=== PATIENT | female | born 1970 | race Caucasian/White ===

== ENCOUNTER 2019-02-02 17:59 | Inpatient (IN) | payer OTHER, SELFPAY ==
[2019-02-02] VITALS (13 sets, daily range): BP systolic 72–205; BP diastolic 11–105; PULSE 88–133; RESP 17–22; TEMP 36.4–39.4; O2SAT 89–98; BMI 41.8; BMI 41.7
--- NOTE | 2019-02-02 18:11 | ED.DCSUM_ITS ---
- ER Visit Summary Date of Service: 02/02/19 Chief Complaint: [Dysuria and flank pain] History of Present Illness: The patient is a 49 F [presents the emergency department from [facility] where she was fully evaluated by the emergency room physician there. They do not have urology coverage and they discussed case with who is on-call for urology here at [facility] who accepted transfer patient to our facility. Patient was found to have a kidney stone with UTI. Patient tells me she started having what she thought was UTI symptoms 3 days ago. 2 days ago the pain became severe in her low back and suprapubic region. Patient was seen in the ER today and transferred to this facility. In the emergency department patient was found to have signs of a UTI as well as a 6 mm stone with hydronephrosis. 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 Patient received Rocephin at the other facility.] Physical Examination: [HEENT-PERRLA, EOMI. Cranial nerves II through XII grossly intact. TMs clear. Mucous membranes moist. No adenopathy. Cardiovascular-regular rate and rhythm without murmur or ectopy Lungs-clear to auscultation, chest wall stable without crepitus or subcu emphysema Abdomen-normoactive bowel sounds, soft. Patient has diffuse tenderness over the suprapubic region. Patient has some mild CVA tenderness bilaterally. There is no rebound, rigidity, or perineal signs. Extremities-intact ?4, normal range of motion, normal pulses, atraumatic] Test Results: [Lactate was ordered.] Emergency Department Course and Treatment: [Case was discussed with urologist who will admit patient] Treatment Plan: [Admit] Disposition: [Admit] Impression: Obstructing kidney stone with colic UTI Sepsis [] This note was generated with [facility] dictation software. It may contain incorrect words, spelling, and punctuation that were not noted in review of the chart prior to signing ED Disposition - Plan for ED Patient: Referrals: Uvaldo De León DO [Primary Care Provider] -
--- NOTE | 2019-02-02 18:39 | PCM.CONS.U ---
Reason for Consult Date of Consultation: 02/02/19 Reason for Consultation: Right kidney stone History of Present Illness: The patient is a 49 year old female transferred from outside hospital with fevers and chills elevated white blood count, tachycardia she has a 6 mm stone in the mid ureter that is causing obstruction she was admitted for further care Past Medical History Allergies No Known Allergies Allergy (Verified 02/02/19 18:06) Home Medications: Ambulatory Orders Medication Instructions Recorded Fluoxetine [Prozac] 20 mg PO DAILY 02/02/19 Labetalol [Trandate] 200 mg PO DAILY 02/02/19 Pravastatin [Pravachol] 40 mg PO QHS 02/02/19 Surgical History: noncontributory Psychiatric History: No pertinent psych hx 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 Lives: Alone Smoking Status: Never smoker Tobacco Use: Non-smoker Alcohol: None Drugs: None Review of Systems Constitutional: Denies: Chills, Fever, Weight Change HEENT: Denies: Head Aches, Sinus Congestion, Sinus Drainage Cardiovascular: Denies: Chest Pain, Palpitations Respiratory: Denies: Cough, Shortness of breath at rest, Sputum production Gastrointestinal: Denies: Abdominal Pain, Nausea, Vomiting Genitourinary: Denies: Dysuria Musculoskeletal: Denies: Joint Pain, Joint Tenderness Skin: Denies: Rash, Wounds Neurological: Denies: Numbness, Tingling, Focal weakness Psychiatric: Denies: Anxiety, Depression, Homicidal Ideations, Suicidal Ideations Hematologic/ Lymphatic: Denies: Easy Bruising, Easy Bleeding Physical Exam - Physical Exam Vital Signs Temp 98.9 F 02/02/19 18:08 Pulse 104 H 02/02/19 18:01 Resp 17 02/02/19 18:01 BP 143/91 H 02/02/19 18:01 Pulse Ox 93 02/02/19 18:01 Intake & Output 01/31/19 02/01/19 02/02/19 23:59 23:59 23:59 Weight: 100.3 kg General: Alert, Oriented x3 HEENT: Atraumatic Oral: Moist Mucosa Neck: Supple Lungs: Normal air movement Cardiovascular: Regular rate, Tachycardic Abdomen: Soft, Obese Rectal: Anus normal Laboratory Tests Past 24 Hrs 02/02/19 18:20 Lactic Acid Pending Assessment/Plan 49-year-old female with a 6 mm stone in the right ureter causing obstruction she has a urinary tract infections can be admitted by the hospitalist service for early sepsis she is tachycardic with elevated white blood count, lactic acid pending. I called the surgical team and we can place a stent tonight on the right side. She is n.p.o. and should be consented for the procedure all her questions were answered.
--- NOTE | 2019-02-02 18:42 | CON.PCM_ITS ---
Reason for Consult Date of Consultation: 02/02/19 Reason for Consultation: Right kidney stone History of Present Illness: The patient is a 49 year old female transferred from outside hospital with fevers and chills elevated white blood count, tachycardia she has a 6 mm stone in the mid ureter that is causing obstruction she was admitted for further care Past Medical History Allergies No Known Allergies Allergy (Verified 02/02/19 18:06) Home Medications: Ambulatory Orders Medication Instructions Recorded Fluoxetine [Prozac] 20 mg PO DAILY 02/02/19 Labetalol [Trandate] 200 mg PO DAILY 02/02/19 Pravastatin [Pravachol] 40 mg PO QHS 02/02/19 Surgical History: noncontributory Psychiatric History: No pertinent psych hx 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 Lives: Alone Smoking Status: Never smoker Tobacco Use: Non-smoker Alcohol: None Drugs: None Review of Systems Constitutional: Denies: Chills, Fever, Weight Change HEENT: Denies: Head Aches, Sinus Congestion, Sinus Drainage Cardiovascular: Denies: Chest Pain, Palpitations Respiratory: Denies: Cough, Shortness of breath at rest, Sputum production Gastrointestinal: Denies: Abdominal Pain, Nausea, Vomiting Genitourinary: Denies: Dysuria Musculoskeletal: Denies: Joint Pain, Joint Tenderness Skin: Denies: Rash, Wounds Neurological: Denies: Numbness, Tingling, Focal weakness Psychiatric: Denies: Anxiety, Depression, Homicidal Ideations, Suicidal Ideations Hematologic/ Lymphatic: Denies: Easy Bruising, Easy Bleeding Physical Exam - Physical Exam Vital Signs Temp 98.9 F 02/02/19 18:08 Pulse 104 H 02/02/19 18:01 Resp 17 02/02/19 18:01 BP 143/91 H 02/02/19 18:01 Pulse Ox 93 02/02/19 18:01 Intake & Output 01/31/19 02/01/19 02/02/19 23:59 23:59 23:59 Weight: 100.3 kg General: Alert, Oriented x3 HEENT: Atraumatic Oral: Moist Mucosa Neck: Supple Lungs: Normal air movement Cardiovascular: Regular rate, Tachycardic Abdomen: Soft, Obese Rectal: Anus normal Laboratory Tests Past 24 Hrs 02/02/19 18:20 Lactic Acid Pending Assessment/Plan 49-year-old female with a 6 mm stone in the right ureter causing obstruction she has a urinary tract infections can be admitted by the hospitalist service for early sepsis she is tachycardic with elevated white blood count, lactic acid pending. I called the surgical team and we can place a stent tonight on the right side. She is n.p.o. and should be consented for the procedure all her questions were answered.
--- NOTE | 2019-02-02 18:45 | PCM.HP.STD ---
Problem List (1) UTI (urinary tract infection) Status: Acute Qualifiers: Urinary tract infection type: acute cystitis Hematuria presence: without hematuria Qualified Code(s): N30.00 - Acute cystitis without hematuria (2) Sepsis Status: Acute Qualifiers: Sepsis type: sepsis due to unspecified organism Qualified Code(s): A41.9 - Sepsis, unspecified organism (3) Ureteral calculus, right Status: Acute History of Present Illness Date of Admission: 02/02/19 Chief Complaint: flank pain The patient is a 49 year old F presents with acute onset of right flank pain today. But over the weekend, patient was having some urinary tract symptoms which she commonly gets and takes a uziu-opk-myoapxv antibiotic per her description that usually resolves it on her own but presented to outside hospital and was diagnosed with a right ureteral stone as well as urinary tract infection. Patient, at the outside hospital, received IV fluids, Zofran, Toradol, ceftriaxone and K riders for hyperkalemia. Patient denies ever having had a kidney stone before. Urology was contacted from the other hospital and advised transfer via the emergency room at [facility]. Patient was seen by Dr. Fernandes in the emergency room who will be taking the patient for stent placement this evening. 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 Denies: Anorexia Eyes: Denies: Blurred vision, Double vision HEENT: Denies: Head Aches, Sinus Congestion, Sinus Drainage Cardiovascular: Denies: Chest Pain, Palpitations Respiratory: Denies: Cough, Shortness of breath at rest, Sputum production Gastrointestinal: Reports: Abdominal Pain, Nausea, Vomiting Genitourinary: Reports: Hematuria - But none today. Typically when she gets urinary tract infections.. Denies: Dysuria Musculoskeletal: Denies: Joint Pain, Joint Tenderness Skin: Denies: Rash, Wounds Neurological: Denies: Numbness, Tingling, Focal weakness Psychiatric: Reports: - - States she does not take fluoxetine for depression or anxiety.. Denies: Anxiety, Depression Hematologic/ Lymphatic: Denies: Easy Bruising, Easy Bleeding, Hx of blood clot Comment: A 10 point review of systems were negative except as mentioned in the history of present illness and the other review of systems. VTE Information - Inpt Only VTE Present on Admission: No VTE Mechan Device Prophylaxis: None VTE Pharm Prophylaxis ordered?: Yes Patient Problems: Active and Suspected Problems UTI (urinary tract infection) (Acute) Sepsis (Acute) Ureteral calculus, right (Acute) - Physical Exam General: Alert, Cooperative, No apparent distress, - - Hirsutism HEENT: Atraumatic, Normocephalic Oral: Moist Mucosa, No Gingival or Mucosal Lesions/ Ulcerations Neck: No Nodes, Thyroid Normal Size and Texture Lungs: Clear to auscultation, Normal air movement, No rhonchi, No wheeze Cardiovascular: Regular rate, Regular Rhythm, Normal S1, Normal S2, No murmurs Abdomen: Soft, Non Tender, Non-Distended, Hypoactive Bowel Sounds Extremities: No edema, No Calf Tenderness Skin: No rashes, No breakdown Musculoskeletal: No Tenderness to Palpation of Joints or Extremities, No Muscle Wasting Neurological: Deep Tendon Reflexes 2+/4 and Symmetrical, - - No clonus Psych/Mental Status: Normal Affect, Appropriate Vital Signs Temp Pulse Resp BP Pulse Ox 37.2 C 104 H 17 143/91 H 93 02/02/19 18:08 02/02/19 18:01 02/02/19 18:01 02/02/19 18:01 02/02/19 18:01 Oxygen Delivery Method Room Air Weight: 100.3 kg Body Mass Index (BMI) 41.8 Laboratory Tests Past 24 Hrs 02/02/19 18:20 Lactic Acid Pending CAT scan at the outside facility showed a right ureteral stone. Did have the report to specify more specifically about the report Labs: Urinalysis showed 11-15 white blood cells and 2+ bacteria CBC white count was 18, hemoglobin 13 and platelets greater than 300. BMP: Sodium 134, potassium 3 and creatinine 0.7. Assessment/Plan All Active Problems UTI (urinary tract infection) (Acute) Sepsis (Acute) Ureteral calculus, right (Acute) 1. Sepsis Present on admission Secondary to UTI and possible infected stone Supportive management Patient met 2 out of 4 Sirs criteria with tachycardia and leukocytosis 2. UTI May be related with infected stone as well Patient received ceftriaxone at the outside facility, will continue with that here Will check urine culture here but follow-up on urine culture over at the outside facility as well. 3. Right ureteral stone Seen by urology, plan is for a stent placement this evening Patient is medically optimized to proceed with this procedure. Supportive management 4. DVT prophylaxis with low molecular weight heparin Code Visit Inpatient E&M: 00377 Init Hosp L3
--- NOTE | 2019-02-02 18:49 | HP.PCM_ITS ---
Problem List (1) UTI (urinary tract infection) Status: Acute Qualifiers: Urinary tract infection type: acute cystitis Hematuria presence: without hematuria Qualified Code(s): N30.00 - Acute cystitis without hematuria (2) Sepsis Status: Acute Qualifiers: Sepsis type: sepsis due to unspecified organism Qualified Code(s): A41.9 - Sepsis, unspecified organism (3) Ureteral calculus, right Status: Acute History of Present Illness Date of Admission: 02/02/19 Chief Complaint: flank pain The patient is a 49 year old F presents with acute onset of right flank pain today. But over the weekend, patient was having some urinary tract symptoms which she commonly gets and takes a byfa-ocr-xxcsoze antibiotic per her description that usually resolves it on her own but presented to outside hospital and was diagnosed with a right ureteral stone as well as urinary tract infection. Patient, at the outside hospital, received IV fluids, Zofran, Toradol, ceftriaxone and K riders for hyperkalemia. Patient denies ever having had a kidney stone before. Urology was contacted from the other hospital and advised transfer via the emergency room at [facility]. Patient was seen by Dr. Fernandes in the emergency room who will be taking the patient for stent placement this evening. 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 Denies: Anorexia Eyes: Denies: Blurred vision, Double vision HEENT: Denies: Head Aches, Sinus Congestion, Sinus Drainage Cardiovascular: Denies: Chest Pain, Palpitations Respiratory: Denies: Cough, Shortness of breath at rest, Sputum production Gastrointestinal: Reports: Abdominal Pain, Nausea, Vomiting Genitourinary: Reports: Hematuria - But none today. Typically when she gets urinary tract infections.. Denies: Dysuria Musculoskeletal: Denies: Joint Pain, Joint Tenderness Skin: Denies: Rash, Wounds Neurological: Denies: Numbness, Tingling, Focal weakness Psychiatric: Reports: - - States she does not take fluoxetine for depression or anxiety.. Denies: Anxiety, Depression Hematologic/ Lymphatic: Denies: Easy Bruising, Easy Bleeding, Hx of blood clot Comment: A 10 point review of systems were negative except as mentioned in the history of present illness and the other review of systems. VTE Information - Inpt Only VTE Present on Admission: No VTE Mechan Device Prophylaxis: None VTE Pharm Prophylaxis ordered?: Yes Patient Problems: Active and Suspected Problems UTI (urinary tract infection) (Acute) Sepsis (Acute) Ureteral calculus, right (Acute) - Physical Exam General: Alert, Cooperative, No apparent distress, - - Hirsutism HEENT: Atraumatic, Normocephalic Oral: Moist Mucosa, No Gingival or Mucosal Lesions/ Ulcerations Neck: No Nodes, Thyroid Normal Size and Texture Lungs: Clear to auscultation, Normal air movement, No rhonchi, No wheeze Cardiovascular: Regular rate, Regular Rhythm, Normal S1, Normal S2, No murmurs Abdomen: Soft, Non Tender, Non-Distended, Hypoactive Bowel Sounds Extremities: No edema, No Calf Tenderness Skin: No rashes, No breakdown Musculoskeletal: No Tenderness to Palpation of Joints or Extremities, No Muscle Wasting Neurological: Deep Tendon Reflexes 2+/4 and Symmetrical, - - No clonus Psych/Mental Status: Normal Affect, Appropriate Vital Signs Temp Pulse Resp BP Pulse Ox 37.2 C 104 H 17 143/91 H 93 02/02/19 18:08 02/02/19 18:01 02/02/19 18:01 02/02/19 18:01 02/02/19 18:01 Oxygen Delivery Method Room Air Weight: 100.3 kg Body Mass Index (BMI) 41.8 Laboratory Tests Past 24 Hrs 02/02/19 18:20 Lactic Acid Pending CAT scan at the outside facility showed a right ureteral stone. Did have the report to specify more specifically about the report Labs: Urinalysis showed 11-15 white blood cells and 2+ bacteria CBC white count was 18, hemoglobin 13 and platelets greater than 300. BMP: Sodium 134, potassium 3 and creatinine 0.7. Assessment/Plan All Active Problems UTI (urinary tract infection) (Acute) Sepsis (Acute) Ureteral calculus, right (Acute) 1. Sepsis * Present on admission * Secondary to UTI and possible infected stone * Supportive management * Patient met 2 out of 4 Sirs criteria with tachycardia and leukocytosis 2. UTI * May be related with infected stone as well * Patient received ceftriaxone at the outside facility, will continue with that here * Will check urine culture here but follow-up on urine culture over at the outside facility as well. 3. Right ureteral stone * Seen by urology, plan is for a stent placement this evening * Patient is medically optimized to proceed with this procedure. * Supportive management 4. DVT prophylaxis with low molecular weight heparin Code Visit Inpatient E&M: 62564 Init Hosp L3
[2019-02-02 18:56] LABS: Lactic Acid 0.9 mmol/L (0.4-2.0)
[2019-02-02] MEDS: Ondansetron 4 MG/2 ML Vial IV (19:41)
--- NOTE | 2019-02-02 19:43 | ED.RN ---
REPORT GIVEN TO OR.
--- NOTE | 2019-02-02 20:16 | OP.PCM_ITS ---
Report of Operation Date of Procedure: 02/02/19 Pre-Operative Diagnosis: Right obstructing ureteral calculi and urinary tract infection Post-Operative Diagnosis: The same Surgery/Procedure Performed:: Cystoscopy, right retrograde pyelogram, right stent placement Description of Surgical Findings:: 49-year-old female taken back to the operating room after smooth induction of general anesthesia she was placed supine on the table in the dorsolithotomy position, went into the bladder with a 21 Occitan rigid cystourethroscope, she did have a fairly large rectocele and small cystocele, identified the trigone, I then cannulated the right ureter orifice with a Glidewire and a Pollack catheter performed a retrograde pyelogram could see contrast going up to the kidney it is hard to see the stone but you could see significant hydronephrosis. I then advanced a wire up into the kidney called the wire and then over the wire advanced a stent a 6 Occitan by 26 cm stent was pulled the wire the stent: The kidney bladder good position I then drained the bladder patient anesthetic is being reversed plan is to treat her for infection and then she will follow-up in the office for a checkup. Type of Anesthesia:: General Drains: stent 6 fr x 26 cm - Admit VTE Documentation VTE Present on Admission: No VTE Mechan Device Prophylaxis: SCD's
[2019-02-02 20:20] LABS: Pregnancy, Serum, hCG Quali. NEGATIVE Negative (0-9 Nonpreg)
[2019-02-02] MEDS: Ketorolac 15 MG/ML Vial IV (21:11)
[2019-02-02] MEDS: Morphine 2 MG/ML Syringe IV (21:12)
[2019-02-02] MEDS: Labetalol 200 MG Tablet PO (22:31)
[2019-02-02] MEDS: Acetaminophen 325 MG Tablet 650 MG PO (22:32)
[2019-02-03] VITALS (8 sets, daily range): BP systolic 70–150; BP diastolic 48–91; PULSE 74–81; RESP 16–20; TEMP 36.4–36.6; O2SAT 96–98
[2019-02-03] MEDS: 0.9% Normal Saline 1,000 ML 999 ML IV ×2 (00:15→01:40)
--- NOTE | 2019-02-03 01:17 | NURSING ---
BP LOW. PT DENIES DIZZINESS, LIGHT HEADEDNESS. A/OX3. PLACED ON TELE NURSING INTERVENTION. NSR. HAS BEEN ALERTED. CURRENTLY INFUSING 1 OF 2 FLUID BOLUS. STATES SHE TAKES LABETALOL DAILY, DOESN'T SKIP DOSES. HOWEVER, NURSING LOOKED INTO EXTERNAL MED HX TO FIND LAST FILLED 09/11/18, OTHER MEDS FILLED 01/05/19.
[2019-02-03 05:52] LABS: Anion Gap 8 (5-15); BUN 12 mg/dL (7-18); BUN/Creat Ratio 7.9 RATIO (10-20); Calcium,Total 7.5 mg/dL (8.5-10.1); Chloride 107 mmol/L (98-107); Creatinine, Serum 1.51 mg/dL (0.55-1.02); EST Glomerular Filtration Rate 39 mL/min (>60); Est Glom Filt Rate - Afr Amer 47 mL/min (>60); Estimated Creatinine Clearance 33.26 ml/min; Glucose 143 mg/dL (74-106); Magnesium 1.6 mg/dL (1.6-2.6); Potassium 3.4 mmol/L (3.5-5.1); Sodium Level 137 mmol/L (136-145)
[2019-02-03 05:55] LABS: Absolute Lymphocyte Count 0.29 X10^3/ul (0.83-4.51); Eosinophil# 0.06 X10^3/uL; Eosinophils% 0.4 % (0-5); Hematocrit 32.4 % (37-47); Lymphocyte # 0.29 X10^3/ul (4.0); Lymphocyte % 1.9 % (19-41); Mean Corp Hgb Conc 30.9 g/gl (32-36); Mean Corpuscular Volume 87.3 fL (81-99); Mean Platelet Vol. 10.1 fl (6.2-12.0); Monocyte# 0.41 X10^3/uL; Monocyte% 2.7 % (0-10); Neutrophil # 14.03 X10^3/uL (2.7-7.7); Neutrophil % 93.9 % (47-70); Platelet Count 243 K/mm3 (150-450); RBC Distribution Width CV 15.1 % (11.6-14.6); RBC Distribution Width SD 46.8 fl (35.1-43.9); Red Blood Count 3.71 M/mm3 (4.2-5.4)
[2019-02-03 06:00] LABS: Differential Indicated SCAN CRITERIA MET; POSITIVE COUNT NO; POSITIVE DIFFERENTIAL YES; POSITIVE MORPHOLOGY YES
[2019-02-03 06:50] LABS: Differential Comment SCANNED
--- NOTE | 2019-02-03 08:10 | PCM.PN.HOSP ---
Patient Problems: Active and Suspected Problems (Last Updated 02/02/19 @ 18:47 by Ashvin Guzman DO) UTI (urinary tract infection) (Acute) Sepsis (Acute) Ureteral calculus, right (Acute) Subjective: Patient is a 49-year-old lady who presented with right flank pain. Patient was diagnosed with right ureteral stone as well as urinary tract infection admitted to regular nursing floor with consultation to Dr. Fernandes with urology. Objective: GENERAL: cooperative HEENT: Atraumatic; moist oral mucosa EYES; Anicteric, Normal Conjunctiva NECK; supple, normal thyroid, no distended JVD. RESPIRATORY: Diminished to auscultation bilaterally, CARDIOVASCULAR: Regular S1 S2, no audible murmurs GI: soft, non-tender, normoactive bowel sounds, : R Renal angle tenderness; EXTREMITIES: No edema, no clubbing, no cyanosis. MUSCULOSKELETAL: No Joint Tenderness; no muscle waisting NEURO: Awake; no lateralizing signs. SKIN: No Rash PSYCH; Normal affect Vitals/I&O's: Vital Signs Temp Pulse Resp BP Pulse Ox 97.5 F L 78 18 94/62 98 02/03/19 05:54 02/03/19 05:54 02/03/19 05:54 02/03/19 05:54 02/03/19 05:54 Oxygen Flow Rate (L/min) 1 Oxygen Delivery Method Nasal Cannula Weight: 100.2 kg Body Mass Index (BMI) 41.7 Intake and Output for Last 24 Hours 02/01/19 02/02/19 02/03/19 23:59 23:59 23:59 Intake Total 750 / 750 5274 / 5274 Output Total 1150 / 1150 Balance -400 / -400 5274 / 5274 Laboratory Results 02/02/19 18:20: Lactic Acid 0.9 02/02/19 19:25: Serum , Qual NEGATIVE 02/03/19 05:00: WBC 15.0 H, RBC 3.71 L, Hgb 10.0 L, Hct 32.4 L, MCV 87.3, MCH 27.0, MCHC 30.9 L, RDW 15.1 H, RDW Differential 46.8 H, Plt Count 243, MPV 10.1, Immature Gran % (Auto) 1.100 H, Neut % (Auto) 93.9 H, Lymph % (Auto) 1.9 L, [place] % (Auto) 2.7, Eos % (Auto) 0.4, Baso % (Auto) 0.0, Absolute Neuts (auto) 14.0 H, Absolute Lymphs (auto) 0.29 L, Total Counted Not Reportable, Differential Comment SCANNED 02/03/19 05:00: Sodium 137, Potassium 3.4 L, Chloride 107, Carbon Dioxide 22.0, Anion Gap 8, BUN 12, Creatinine 1.51 H, Estim Creat Clear Calc 33.26, Est GFR (MDRD) Af Amer 47 L, Est GFR (MDRD) Non-Af 39 L, BUN/Creatinine Ratio 7.9 L, Glucose 143 H, Calcium 7.5 L, Magnesium 1.6 Current Medications Acetaminophen (Tylenol) 650 mg PO Q6H PRN PRN PRN Reason: Mild Pain (1-3)/Temp > 100.7 F Last Admin: 02/02/19 22:32 Dose: 650 mg Dextrose (D50w Syringe) 0 gm IV X1 PRN; Protocol PRN Reason: Hypoglycemia Enoxaparin Sodium (Lovenox) 40 mg SC DAILY@1000 [facility] Fluoxetine HCl (Prozac) 20 mg PO DAILY [facility] Glucagon () 1 mg IM .X1 PRN PRN Reason: Hypoglycemia Ceftriaxone Sodium (Rocephin) 1 gm in 50 mls @ 100 mls/hr IV Q24H [facility] Sodium Chloride () 1,000 mls @ 125 mls/hr IV .Q8H [facility] Ketorolac Tromethamine (Toradol) 15 mg IV Q6H PRN PRN PRN Reason: PAIN Stop: 02/07/19 20:48 Last Admin: 02/02/19 21:11 Dose: 15 mg Labetalol HCl (Trandate) 200 mg PO DAILY@2200 [facility] Last Admin: 02/02/19 22:31 Dose: 200 mg Morphine Sulfate () 2 mg IV Q3H PRN PRN PRN Reason: SEVERE PAIN (6-10/10) Last Admin: 02/02/19 21:12 Dose: 2 mg Ondansetron HCl (Zofran) 4 mg IV Q8H PRN PRN PRN Reason: NAUSEA/VOMITING Prochlorperazine Edisylate (Compazine Iv) 5 mg IV Q4H PRN PRN PRN Reason: Breakthrough nausea/vomiting Sodium Chloride () 5 - 15 ml IV UD PRN PRN Reason: SALINE FLUSH Temazepam (Restoril) 15 mg PO QHS PRN PRN PRN Reason: INSOMNIA Medical Necessity - Tobacco Use Smoking Status: Never smoker Tobacco Use: Non-smoker Assessment/Plan All Active Problems (Last Updated 02/02/19 @ 18:47 by Ashvin Guzman DO) UTI (urinary tract infection) (Acute) Sepsis (Acute) Ureteral calculus, right (Acute) Patient is a 49-year-old lady who presented with right flank pain. Patient was diagnosed with right ureteral stone as well as urinary tract infection admitted to regular nursing floor with consultation to Dr. Fernandes with urology. 1. Sepsis secondary to UTI in the context of right obstructing ureteral stone; patient was started on Rocephin in addition to IV fluids after cultures have been sent. As stated above patient was also found to have kidney stones on admission 2. Right urethral stone: Consultation was placed to urology patient underwent Cystoscopy, right retrograde pyelogram, right stent placement by Dr. Fernandes on 02/12/2019 3. Dyslipidemia-patient is on statin therapy, 4. Hypertension: Did continue with home meds 5. Morbid obesity with BMI of 41.7 weight loss advised 6. Perimenopausal symptoms patient is on fluoxetine 7. DVT prophylaxis SC Lovenox Active Medications Acetaminophen (Tylenol) 650 mg PO Q6H PRN PRN PRN Reason: Mild Pain (1-3)/Temp > 100.7 F Last Admin: 02/02/19 22:32 Dose: 650 mg Dextrose (D50w Syringe) 0 gm IV X1 PRN; Protocol PRN Reason: Hypoglycemia Enoxaparin Sodium (Lovenox) 40 mg SC DAILY@1000 [facility] Fluoxetine HCl (Prozac) 20 mg PO DAILY [facility] Glucagon () 1 mg IM .X1 PRN PRN Reason: Hypoglycemia Ceftriaxone Sodium (Rocephin) 1 gm in 50 mls @ 100 mls/hr IV Q24H [facility] Sodium Chloride () 1,000 mls @ 125 mls/hr IV .Q8H [facility] Ketorolac Tromethamine (Toradol) 15 mg IV Q6H PRN PRN PRN Reason: PAIN Stop: 02/07/19 20:48 Last Admin: 02/02/19 21:11 Dose: 15 mg Labetalol HCl (Trandate) 200 mg PO DAILY@2200 [facility] Last Admin: 02/02/19 22:31 Dose: 200 mg Morphine Sulfate () 2 mg IV Q3H PRN PRN PRN Reason: SEVERE PAIN (6-08/06) Last Admin: 02/02/19 21:12 Dose: 2 mg Ondansetron HCl (Zofran) 4 mg IV Q8H PRN PRN PRN Reason: NAUSEA/VOMITING Prochlorperazine Edisylate (Compazine Iv) 5 mg IV Q4H PRN PRN PRN Reason: Breakthrough nausea/vomiting Sodium Chloride () 5 - 15 ml IV UD PRN PRN Reason: SALINE FLUSH Temazepam (Restoril) 15 mg PO QHS PRN PRN PRN Reason: INSOMNIA Code Visit Inpatient E&M: 59903 Subs Hosp L3
[2019-02-03] MEDS: 0.9% Normal Saline 1,000 ML 125 ML IV ×2 (11:04→18:52)
[2019-02-03] MEDS: Enoxaparin 40 MG/0.4 ML Syringe SC (11:05)
[2019-02-03] MEDS: FLUoxetine 20 MG Capsule PO (11:05)
[2019-02-03] MEDS: Ceftriaxone 1 GM/50 ML BAG IV (11:07)
[2019-02-03] MEDS: Ketorolac 15 MG/ML Vial IV ×2 (11:36→18:50)
--- NOTE | 2019-02-03 11:50 | CASEMGMT ---
RN SHERRY Face to Face with patient for initial transition planning/care coordination assessment. RN SHERRY introduced self and role at [facility]. Patient sitting in bed, alert and oriented, at bedside. Patient willing to participate in assessment and is able to answer all questions appropriately. Care providers, pharmacy, and demographics verified. Patient wishes to discharge home, denies need for home health at this time. Patient states she has no further needs or concerns at this time. CM to follow for discharge planning needs that may arise. PCP: Sarthka Specialists: None Preferred Pharmacy: [facility] Insurance: [address] Prescription Benefit: none Living Will/HPOA: none LNOK: Living Arrangements: Patient lives with family in one story home. Patient independent at home. Transportation: Deputy Director DME/HHC: Patient denies need for DME at this time. Disposition Plan: Patient to discharge home with family support and follow-up plans in place. Winifred PENA, RN, CM
[2019-02-03] MEDS: Labetalol 200 MG Tablet PO (22:28)
[2019-02-04] MEDS: 0.9% NaCl Peripheral Flush Adult/Peds IV (02:56)
[2019-02-04 03:23] VITALS: BP 146/84; PULSE 78; RESP 18; TEMP 37.1; O2SAT 97
[2019-02-04] MEDS: 0.9% Normal Saline 1,000 ML 125 ML IV (03:31)
[2019-02-04] MEDS: Acetaminophen 325 MG Tablet 650 MG PO (03:31)
--- NOTE | 2019-02-04 07:46 | PCM.PN.HOSP ---
Patient Problems: Active and Suspected Problems (Last Updated 02/02/19 @ 18:47 by Ashvin Guzman DO) UTI (urinary tract infection) (Acute) Sepsis (Acute) Ureteral calculus, right (Acute) Subjective: Seen still complains of right flank pain. WBC count trending down cultures pending potassium 3.4 repletion initiated Objective: GENERAL: cooperative HEENT: Atraumatic; moist oral mucosa EYES; Anicteric, Normal Conjunctiva NECK; supple, normal thyroid, no distended JVD. RESPIRATORY: Diminished to auscultation bilaterally, CARDIOVASCULAR: Regular S1 S2, no audible murmurs GI: soft, non-tender, normoactive bowel sounds, : R Renal angle tenderness; EXTREMITIES: No edema, no clubbing, no cyanosis. MUSCULOSKELETAL: No Joint Tenderness; no muscle waisting NEURO: Awake; no lateralizing signs. SKIN: No Rash PSYCH; Normal affect Vitals/I&O's: Vital Signs Temp Pulse Resp BP Pulse Ox 98.8 F 78 18 146/84 H 97 02/04/19 03:23 02/04/19 03:23 02/04/19 03:23 02/04/19 03:23 02/04/19 03:23 Oxygen Flow Rate (L/min) 1 Oxygen Delivery Method Room Air Weight: 100.2 kg Body Mass Index (BMI) 41.7 Intake and Output for Last 24 Hours 02/02/19 02/03/19 02/04/19 23:59 23:59 23:59 Intake Total 750 / 750 5274 / 5274 2300 / 2300 Output Total 1150 / 1150 1750 / 1750 Balance -400 / -400 5274 / 5274 550 / 550 Current Medications Acetaminophen (Tylenol) 650 mg PO Q6H PRN PRN PRN Reason: Mild Pain (1-3)/Temp > 100.7 F Last Admin: 02/04/19 03:31 Dose: 650 mg Dextrose (D50w Syringe) 0 gm IV X1 PRN; Protocol PRN Reason: Hypoglycemia Enoxaparin Sodium (Lovenox) 40 mg SC DAILY@1000 [facility] Last Admin: 02/03/19 11:05 Dose: 40 mg Fluoxetine HCl (Prozac) 20 mg PO DAILY [facility] Last Admin: 02/03/19 11:05 Dose: 20 mg Glucagon () 1 mg IM .X1 PRN PRN Reason: Hypoglycemia Ceftriaxone Sodium (Rocephin) 1 gm in 50 mls @ 100 mls/hr IV Q24H [facility] Last Admin: 02/03/19 11:07 Dose: 100 mls/hr Sodium Chloride () 1,000 mls @ 125 mls/hr IV .Q8H [facility] Last Admin: 02/04/19 03:31 Dose: 125 mls/hr Ketorolac Tromethamine (Toradol) 15 mg IV Q6H PRN PRN PRN Reason: PAIN Stop: 02/07/19 20:48 Last Admin: 02/03/19 18:50 Dose: 15 mg Labetalol HCl (Trandate) 200 mg PO DAILY@2200 [facility] Last Admin: 02/03/19 22:28 Dose: 200 mg Morphine Sulfate () 2 mg IV Q3H PRN PRN PRN Reason: SEVERE PAIN (6-1010) Last Admin: 02/02/19 21:12 Dose: 2 mg Ondansetron HCl (Zofran) 4 mg IV Q8H PRN PRN PRN Reason: NAUSEA/VOMITING Prochlorperazine Edisylate (Compazine Iv) 5 mg IV Q4H PRN PRN PRN Reason: Breakthrough nausea/vomiting Sodium Chloride () 5 - 15 ml IV UD PRN PRN Reason: SALINE FLUSH Last Admin: 02/04/19 02:56 Dose: 10 ml Temazepam (Restoril) 15 mg PO QHS PRN PRN PRN Reason: INSOMNIA Medical Necessity - Tobacco Use Smoking Status: Never smoker Tobacco Use: Non-smoker Assessment/Plan All Active Problems (Last Updated 02/02/19 @ 18:47 by Ashvin Guzman DO) UTI (urinary tract infection) (Acute) Sepsis (Acute) Ureteral calculus, right (Acute) Patient is a 49-year-old lady who presented with right flank pain. Patient was diagnosed with right ureteral stone as well as urinary tract infection admitted to regular nursing floor with consultation to Dr. Fernandes with urology. 1. Sepsis secondary to UTI in the context of right obstructing ureteral stone; patient was started on Rocephin in addition to IV fluids after cultures have been sent. As stated above patient was also found to have kidney stones on admission culture sent results still pending 2. Right urethral stone: Consultation was placed to urology patient underwent Cystoscopy, right retrograde pyelogram, right stent placement by Dr. Fernandes on 02/12/2019 3. Dyslipidemia-patient is on statin therapy, 4. Hypertension: Did continue with home meds 5. Morbid obesity with BMI of 41.7 weight loss advised 6. Perimenopausal symptoms patient is on fluoxetine 7. DVT prophylaxis SC Lovenox 8. Hypokalemia repleted per protocol Code Visit Inpatient E&M: 65541 Subs Hosp L2
[2019-02-04 07:48] VITALS: BP 161/104; PULSE 71; RESP 16; TEMP 36.7; O2SAT 93
[2019-02-04 08:32] VITALS: BP 153/97; PULSE 70; RESP 16; TEMP 36.5; O2SAT 95
[2019-02-04 08:42] LABS: Absolute Lymphocyte Count 0.75 X10^3/ul (0.83-4.51); Basophil# 0.02 X10^3/uL; Basophil% 0.3 % (0-1); Eosinophil# 0.14 X10^3/uL; Eosinophils% 1.9 % (0-5); Hemoglobin 9.9 g/dl (12.0-15.0); Lymphocyte # 0.75 X10^3/ul (4.0); Lymphocyte % 9.9 % (19-41); Mean Corp Hgb Conc 31.9 g/gl (32-36); Mean Corpuscular Hgb 27.8 pg (27.0-32.0); Mean Corpuscular Volume 87.1 fL (81-99); Mean Platelet Vol. 9.9 fl (6.2-12.0); Monocyte# 0.66 X10^3/uL; Monocyte% 8.7 % (0-10); Neutrophil # 5.97 X10^3/uL (2.7-7.7); Neutrophil % 79.1 % (47-70); Platelet Count 184 K/mm3 (150-450); RBC Distribution Width CV 15.1 % (11.6-14.6); RBC Distribution Width SD 48.5 fl (35.1-43.9); Red Blood Count 3.56 M/mm3 (4.2-5.4); White Blood Count 7.6 K/mm3 (4.4-11.0)
[2019-02-04 08:43] LABS: POSITIVE COUNT NO; POSITIVE DIFFERENTIAL NO; POSITIVE MORPHOLOGY NO
[2019-02-04 09:13] LABS: Anion Gap 9 (5-15); BUN 12 mg/dL (7-18); BUN/Creat Ratio 17.7 RATIO (10-20); Chloride 111 mmol/L (98-107); Creatinine, Serum 0.68 mg/dL (0.55-1.02); EST Glomerular Filtration Rate 97 mL/min (>60); Est Glom Filt Rate - Afr Amer 118 mL/min (>60); Estimated Creatinine Clearance 73.86 ml/min; Glucose 102 mg/dL (74-106); Potassium 3.4 mmol/L (3.5-5.1); Sodium Level 142 mmol/L (136-145)
[2019-02-04] MEDS: Ceftriaxone 1 GM/50 ML BAG IV (09:44)
[2019-02-04] MEDS: Enoxaparin 40 MG/0.4 ML Syringe SC (09:45)
[2019-02-04] MEDS: FLUoxetine 20 MG Capsule PO (09:45)
[2019-02-04] MEDS: Ketorolac 15 MG/ML Vial IV (11:06)
--- NOTE | 2019-02-04 11:25 | PCM.DC ---
- Discharge Diagnoses Current Active Problems: Current Active and Chronic Problems (Last Updated 02/02/19 @ 18:47 by Ashvin Guzman DO) UTI (urinary tract infection) (Acute) Sepsis (Acute) Ureteral calculus, right (Acute) You will use the following diet at home:: No restrictions Allergies/Adverse Reactions: Allergies No Known Allergies Allergy (Verified 02/02/19 18:06) Medications to take at Discharge Fluoxetine [Prozac] 20 mg PO DAILY 02/02/19 Labetalol [Trandate (Beta Pat)] 200 mg PO DAILY 02/02/19 Pravastatin [Pravachol] 40 mg PO QHS 02/02/19 Cephalexin [Keflex] 500 mg PO Q8 #21 cap 02/04/19 Hydrocodone Bitart/Apap 5-325 [[place] 5MG-325MG] 1 tab PO Q6H PRN PRN 5 Days #16 tab 02/04/19 Potassium Chloride [K-Dur] 20 meq PO BIDCM #30 tab 02/04/19 The following prescriptions were given: Cephalexin [Keflex] 500 mg PO Q8 #21 cap Hydrocodone Bitart/Apap 5-325 [[place] 5MG-325MG] 1 tab PO Q6H PRN PRN 5 Days #16 tab PRN Reason: Pain Potassium Chloride [K-Dur] 20 meq PO BIDCM #30 tab Primary Care Physician: Uvaldo De León DO [Primary Care Provider] - Please follow up with your Primary Care Physician in: in 5-7 days Test Results: Test results from this visit will be discussed in further detail at your follow-up appointment, if applicable. Please Follow Up With: Benjamín Fernandes MD When: call for f/u appt Proposed Discharge Date: 02/04/19
--- NOTE | 2019-02-04 11:29 | DS.PCM_ITS ---
Discharge Date and Diagnosis - Problem List Patient Problems: Active and Suspected Problems (Last Updated 02/02/19 @ 18:47 by Ashvin Guzman DO) UTI (urinary tract infection) (Acute) Sepsis (Acute) Ureteral calculus, right (Acute) Date of Admission: 02/02/19 Date of Discharge: 02/04/19 - Primary Discharge Diagnosis Active and Suspected Problems (Last Updated 02/02/19 @ 18:47 by Ashvin Guzman DO) UTI (urinary tract infection) (Acute) Sepsis (Acute) Ureteral calculus, right (Acute) Hospital Course and Treatment Summary of Care Provided: Patient is a 49-year-old lady who presented with right flank pain. Patient was diagnosed with right ureteral stone as well as urinary tract infection admitted to regular nursing floor with consultation to Dr. Fernandes with urology. 1. Sepsis secondary to UTI in the context of right obstructing ureteral stone; patient was started on Rocephin in addition to IV fluids after cultures have been sent. As stated above patient was also found to have kidney stones on admission culture sent. Urine cultures came back positive for only mixed organisms patient was sent home on Keflex for 7 days 2. Right urethral stone: Consultation was placed to urology patient underwent Cystoscopy, right retrograde pyelogram, right stent placement by Dr. Fernandes on 02/12/2019 she was instructed on discharge to follow-up with Dr. Davis to call for appointment 3. Dyslipidemia-patient is on statin therapy, 4. Hypertension: Did continue with home meds 5. Morbid obesity with BMI of 41.7 weight loss advised 6. Perimenopausal symptoms patient is on fluoxetine 7. DVT prophylaxis SC Lovenox 8. Hypokalemia repleted per protocol Patient Problems: Active and Suspected Problems (Last Updated 02/02/19 @ 18:47 by Ashvin Guzman DO) UTI (urinary tract infection) (Acute) Sepsis (Acute) Ureteral calculus, right (Acute) - Physical Exam General: Alert HEENT: Atraumatic Neck: Supple Neurological: Neuro grossly intact Psych/Mental Status: Normal Affect Vital Signs Temp Pulse Resp BP Pulse Ox 97.7 F L 70 16 153/97 H 95 02/04/19 08:32 02/04/19 08:32 02/04/19 08:32 02/04/19 08:32 02/04/19 08:32 Oxygen Flow Rate (L/min) 1 Oxygen Delivery Method Room Air Weight: 100.2 kg Body Mass Index (BMI) 41.7 Intake and Output for Last 24 Hours 02/02/19 02/03/19 02/04/19 23:59 23:59 23:59 Intake Total 750 / 750 5274 / 5274 3350 / 3350 Output Total 1150 / 1150 2850 / 2850 Balance -400 / -400 5274 / 5274 500 / 500 Microbiology Past 72 Hours 02/02/19 22:00 Urine Culture - Final Urine, Clean Catch Mixed Gram Positive Organisms Laboratory Tests Past 24 Hrs 02/04/19 02/04/19 08:20 08:20 WBC 7.6 RBC 3.56 L Hgb 9.9 L Hct 31.0 L MCV 87.1 MCH 27.8 MCHC 31.9 L RDW 15.1 H RDW Differential 48.5 H Plt Count 184 MPV 9.9 Immature Gran % (Auto) 0.100 Neut % (Auto) 79.1 H Lymph % (Auto) 9.9 L [place] % (Auto) 8.7 Eos % (Auto) 1.9 Baso % (Auto) 0.3 Absolute Neuts (auto) 6.0 Absolute Lymphs (auto) 0.75 L Total Counted Not Reportable Sodium 142 Potassium 3.4 L Chloride 111 H Carbon Dioxide 22.0 Anion Gap 9 BUN 12 Creatinine 0.68 Estim Creat Clear Calc 73.86 Est GFR (MDRD) Af Amer 118 Est GFR (MDRD) Non-Af 97 BUN/Creatinine Ratio 17.7 Glucose 102 Calcium 8.0 L Magnesium 2.0 Discharge Diet: No Restrictions Discharge Activity: Return to Normal Activity Home Medications: Medications to take at Discharge Fluoxetine [Prozac] 20 mg PO DAILY 02/02/19 Labetalol [Trandate (Beta Pat)] 200 mg PO DAILY 02/02/19 Pravastatin [Pravachol] 40 mg PO QHS 02/02/19 Cephalexin [Keflex] 500 mg PO Q8 #21 cap 02/04/19 Hydrocodone Bitart/Apap 5-325 [[place] 5MG-325MG] 1 tab PO Q6H PRN PRN 5 Days #16 tab 02/04/19 Potassium Chloride [K-Dur] 20 meq PO BIDCM #30 tab 02/04/19 Following Prescrptions Were Given to Patient: Cephalexin [Keflex] 500 mg PO Q8 #21 cap Hydrocodone Bitart/Apap 5-325 [[place] 5MG-325MG] 1 tab PO Q6H PRN PRN 5 Days #16 tab PRN Reason: Pain Potassium Chloride [K-Dur] 20 meq PO BIDCM #30 tab Primary Care Physician: Uvaldo De León DO [Primary Care Provider] - Please follow up with your Primary Care Physician in: in 5-7 days Please Follow Up With: Benjamín Fernandes MD When: call for f/u appt Disposition: Home Minutes spent on discharge:: 45 Patient Condition:: Stable Medical Necessity - Tobacco Use Smoking Status: Never smoker Tobacco Use: Non-smoker Meaningful Use Info Meaningful Use Diagnoses (Choose all that apply): None applicable Code Visit Inpatient E&M: 17402 Disch Hosp
[2019-02-04 11:33] VITALS: BP 144/95; PULSE 71; RESP 16; TEMP 36.7; O2SAT 96
--- NOTE | 2019-02-04 14:54 | NURSING ---
student nurses charting used for educational and learning purposes. reviewed by eliu
== END 2019-02-04 13:44 | disposition home or self-care (01) | DRG 854 ==
LOC: ED 18:23 → SDC 18:45 → AC 18:45 → SDC 19:23 → MS3 19:23
PROVIDERS: Urology; Emergency Provider Emergency Medicine; Family Provider Family Medicine; PCP Family Medicine; Visit Provider Internal Medicine
PROC: 0T768DZ Dilation of Right Ureter with Intraluminal Device, Via Natural or Artificial Opening Endoscopic (ICD-10-PCS; principal; 2019-02-02 19:30)
DX: A41.9 Sepsis, unspecified organism (principal); N13.6 Pyonephrosis; Z68.41 Body mass index [BMI] 40.0-44.9, adult; I10 Essential (primary) hypertension; E03.9 Hypothyroidism, unspecified; N81.6 Rectocele; N81.10 Cystocele, unspecified; E66.01 Morbid (severe) obesity due to excess calories; E78.5 Hyperlipidemia, unspecified; E87.6 Hypokalemia; N95.1 Menopausal and female climacteric states
CPT/HCPCS: 36415; 76000; 80048; 83605; 83735; 84703; 85025; 87086; 87088; 99283; J7030; A4216; C2617; J2405; J3490

== ENCOUNTER → 2019-02-16 17:02 | Outpatient (CLI) | payer OTHER, SELFPAY ==
[2019-02-02 21:50] VITALS: BMI 41.7
== END ==
PROVIDERS: Family Provider Family Medicine; PCP Family Medicine; Referring Provider Urology; Visit Provider Urology
DX: R31.9 Hematuria, unspecified (principal)
CPT/HCPCS: 87086; 87088

== ENCOUNTER 2019-02-20 07:42 | Day surgery (SDC) | payer SELFPAY, OTHER ==
[2019-02-02 21:50] VITALS: BMI 41.7
[2019-02-20 08:00] VITALS: BP 128/87; PULSE 69; RESP 18; TEMP 36.9; O2SAT 94; BMI 39.9
[2019-02-20 08:51] LABS: Internal QC Validated? YES +Cl - CLEAR BKGD; Pregnancy, Urine Negative Negative
[2019-02-20] MEDS: Cefazolin 2 GM in 0.9% Normal Saline 100 ML IV (09:44)
[2019-02-20 10:28] VITALS: BP 128/87; BP 133/91; PULSE 65; RESP 16; TEMP 36.6; O2SAT 94
--- NOTE | 2019-02-20 10:32 | DCINST_ITS ---
Discharge Diet: Light diet - advance as tolerated Discharge Activity: Return to Normal Activity Suture Line Care: Avoid Pulling/Pushing, Avoid Pinching/Bending Allergies/Adverse Reactions: Allergies No Known Allergies Allergy (Verified 02/20/19 08:03) Medications to take at Discharge Fluoxetine [Prozac] 20 mg PO DAILY 02/02/19 Labetalol [Trandate (Beta Pat)] 200 mg PO BID 02/02/19 Pravastatin [Pravachol] 40 mg PO QHS 02/02/19 Potassium Chloride [K-Dur] 20 meq PO BIDCM #30 tab 02/04/19 Primary Care Physician: Uvaldo De León DO [Primary Care Provider] - Test Results: Test results from this visit will be discussed in further detail at your follow- up appointment, if applicable. Please Follow Up With: Benjamín Fernandes MD When: please call to make an appointment.
--- NOTE | 2019-02-20 10:36 | PCM.OPRPT ---
Report of Operation Date of Procedure: 02/20/19 Pre-Operative Diagnosis: Right ureteral calculi Post-Operative Diagnosis: The same Surgery/Procedure Performed:: Cystoscopy, right retrograde pyelogram, right ureteroscopy laser lithotripsy of stone and right stent placement, interpretation of images. Description of Surgical Findings:: 49-year-old female who presented to the hospital with obstructing stone and a urinary tract infection at that point stent was placed she now presents to treat the stone with laser, patient taken back to the OR, placed in lithotomy, prep and draped in usual fashion went into bladder with cystoscopy and removed stent. I then took a stent out of the bladder put a wire up the stent in the next a wire went in with the ureteroscope as it went up the ureter and encountered a stone and I lasered the stone little tiny pieces. The pieces should pass on their own that then I went up to the kidney performed a retrograde pyelogram interpreted the images and then inspected the upper pole midpole lower pole the kidney worked my way down the ureter over the wire then place a new stent left the string of the stent patient anesthetic was reversed bladder was drained to take back to PACU good condition plan to see her next week to remove the stent. Type of Anesthesia:: General Drains: none - Admit VTE Documentation VTE Present on Admission: No VTE Mechan Device Prophylaxis: SCD's
[2019-02-20] MEDS: Ketorolac 15 MG/ML Vial IV (10:38)
[2019-02-20 10:45] VITALS: BP 128/87; BP 141/98; PULSE 68; RESP 16; O2SAT 92
[2019-02-20 11:00] VITALS: BP 128/87; BP 137/78; PULSE 65; RESP 16; O2SAT 93
[2019-02-20 11:05] VITALS: BP 128/87; BP 139/81; PULSE 60; RESP 16; TEMP 36.2; O2SAT 94
[2019-02-20 11:44] VITALS: BP 128/87; BP 140/93; PULSE 64; RESP 18; TEMP 36.4; O2SAT 98
== END 2019-02-20 11:46 | disposition home or self-care (01) ==
LOC: SDC 07:44 → AC 07:45
PROVIDERS: Anesthesiology; Family Provider Family Medicine; PCP Family Medicine; Referring Provider Urology; Visit Provider Urology
PROC: (CPT 52353; principal; 2019-02-20 09:30)
DX: N20.1 Calculus of ureter (principal); I10 Essential (primary) hypertension; E78.00 Pure hypercholesterolemia, unspecified; F32.9 Major depressive disorder, single episode, unspecified; Z79.899 Other long term (current) drug therapy
CPT/HCPCS: 00918; 52356; 76000; 81025; J7120; C1769; C2617; J2405

== ENCOUNTER → 2019-12-18 11:03 | Outpatient (CLI) | payer OTHER, SELFPAY ==
--- NOTE | 2019-12-18 11:12 | RAD_ITS ---
STUDY: X-RAY - ABDOMEN/PELVIS REASON FOR EXAM: Female, 49 years old. Low back and flank pain TECHNIQUE: Two AP supine views of the abdomen and pelvis. COMPARISON: None. FINDINGS: Normal visualized lung bases. 9 mm calcification near the left UPJ. Punctate calcifications overlying the right kidney There is an unremarkable bowel gas pattern. There is no demonstrated free abdominal air. The visualized liver, spleen and kidneys are grossly normal in size and morphology. Normal soft tissue structures. Normal visualized osseous structures. RAD/Abdomen Single View IMPRESSION: No acute findings, likely punctate right nephrolithiasis, possible stone at the left UPJ Electronically Signed: Santhosh Landry MD at 9:28 EST , Service support ,
[2019-12-18 12:30] LABS: Color, Urine Yellow (Yellow); Glucose, Dipstick Normal (Normal); Ketone-Dipstick Negative (Negative); Leukocyte Esterase-Dipstick 100 /ul (Negative); Nitrite-Dipstick Negative (Negative); Occult Blood-Urine 10 /ul (Negative); Protein-Dipstick Negative (Negative); Urine Bilirubin Dipstick Negative (Negative); Urine Clarity Clear (Clear); Urine Urobilinogen Normal (Normal)
== END ==
PROVIDERS: PCP Family Medicine; Referring Provider Family Medicine; Visit Provider Family Medicine
DX: M54.9 Dorsalgia, unspecified (principal); Z87.442 Personal history of urinary calculi
CPT/HCPCS: 74018; 81002

== ENCOUNTER 2019-12-25 12:29 | Day surgery (SDC) | payer SELFPAY, OTHER ==
[2019-12-25] VITALS (10 sets, daily range): BP systolic 122–169; BP diastolic 79–105; PULSE 71–86; RESP 16; TEMP 36.1–36.6; O2SAT 94–99; BMI 38.5
[2019-12-25 12:48] LABS: Internal QC Validated? YES +Cl - CLEAR BKGD; Pregnancy, Urine Negative Negative
[2019-12-25] MEDS: Lactated Ringers 1,000 ML 100 ML IV (13:15)
--- NOTE | 2019-12-25 14:28 | DCINST_ITS ---
Discharge Diet: Light diet - advance as tolerated Discharge Activity: Return to Normal Activity Call your doctor if your incision/area has: Sudden Increased Bleeding Call your doctor if you observe: Fever of 101 or Higher Instructions: Shock Wave Lithotripsy Allergies/Adverse Reactions: Allergies No Known Allergies Allergy (Verified 12/25/19 13:05) Medications to take at Discharge Fluoxetine [Prozac] 40 mg PO DAILY 02/02/19 Labetalol [Trandate (Beta Pat)] 200 mg PO BID 02/02/19 Pravastatin [Pravachol] 40 mg PO QHS 02/02/19 Ibuprofen 600 mg PO Q6H PRN PRN #20 tablet 02/20/19 Hydrochlorothiazide [Hctz] 25 mg PO DAILY 12/23/19 Ciprofloxacin [Cipro] 500 mg PO BID #6 tab 12/25/19 Hydrocodone/Acetaminophen [[place] 5-325 Tablet] 1 each PO Q4H PRN PRN 7 Days #20 tablet 12/25/19 The following prescriptions were given: Ciprofloxacin [Cipro] 500 mg PO BID #6 tab Transmission Status: Pending to [facility] Hydrocodone/Acetaminophen [[place] 5-325 Tablet] 1 each PO Q4H PRN PRN 7 Days #20 tablet PRN Reason: Pain Score 1-10/10 Transmission Status: Sent to [facility] Primary Care Physician: Uvaldo De León DO [Primary Care Provider] - Test Results: Test results from this visit will be discussed in further detail at your follow- up appointment, if applicable. Please Follow Up With: Benjamín Fernandes MD When: please call to make an appointment.
--- NOTE | 2019-12-25 15:22 | OP.PCM_ITS ---
Report of Operation Date of Procedure: 12/25/19 Pre-Operative Diagnosis: Left kidney stone Post-Operative Diagnosis: Same Surgery/Procedure Performed:: Cystoscopy left stent placement, left extracorporeal shockwave lithotripsy Description of Surgical Findings:: 49-year-old female with obstructing stone in the proximal left ureter presented to the office for evaluation we recommended to proceed with shockwave lithotripsy also place a stent at the same time to help with passage of the stone fragments. Patient was taken back to the operating room after smooth induction of anesthesia she was placed prone on the table went into the bladder with a 21 [place] rigid cystourethroscope identified the left ureteral orifice cannulated the orifice with a wire advanced a wire up into the kidney over the wire I advanced a 6 Dominican by 26 cm stent I pulled on the wire the stent coiled in the kidney and bladder good position of the string on it hanging out the urethra for easy extraction, we then proceeded with shockwave lithotripsy and we delivered a total of 2500 shockwaves to the stone and the stone broke up really well. At the end of the treatment cycle was convinced that a complete fracture was was completed and successful treatment of the stone the patient anesthetic was reversed taken back to PACU in good condition plan to see her next week with an x-ray or remove the stent. Type of Anesthesia:: General
[2019-12-25] MEDS: Ketorolac 30 MG/ML Syringe IV (15:45)
[2019-12-25] MEDS: HYDROcodone Bitartrate/Apap 5/325 Tablet PO (17:01)
== END 2019-12-25 17:39 | disposition home or self-care (01) ==
LOC: SDC 12:29 → AC 12:31
PROVIDERS: Anesthesiology; PCP Family Medicine; Referring Provider Urology; Visit Provider Urology
PROC: (CPT 50590; principal; 2019-12-25 14:35)
DX: N20.1 Calculus of ureter (principal); I10 Essential (primary) hypertension; E78.5 Hyperlipidemia, unspecified; E66.9 Obesity, unspecified; Z68.39 Body mass index [BMI] 39.0-39.9, adult; Z87.442 Personal history of urinary calculi
CPT/HCPCS: 00873; 50590; 52332; 81025; J7120; C1769; C2617; J2405

== ENCOUNTER → 2019-12-31 08:30 | Outpatient (CLI) | payer SELFPAY, OTHER ==
[2019-12-25 13:06] VITALS: BMI 38.5
--- NOTE | 2019-12-31 08:52 | RAD_ITS ---
STUDY: X-RAY - ABDOMEN/PELVIS REASON FOR EXAM: Female, 49 years old. KIDNEY STONES TECHNIQUE: 1 view COMPARISON: Prior exam of December 18, 2019 FINDINGS: A left ureteral pigtail stent in good position. The former proximal ureteral stone has resolved. There are no stone fragments along side the stent or in the urinary bladder. A tiny nonobstructing stone remains in the upper pole of the left kidney. Small/1 to 2 mm nonobstructing stones are identified in the lower and upper pole of the right kidney. There is an unremarkable bowel gas pattern. There is no demonstrated free abdominal air. Negative for organomegaly. Normal soft tissue structures. Normal visualized osseous structures. RAD/Abdomen Single View IMPRESSION: Left pigtail ureteral stent in good position. The former ureteral stone has resolved with no residual ureteral or bladder fragments. 1 to 2 mm nonobstructing stone in the upper pole of the left kidney and similar size stones in the upper and lower pole of the right kidney, nonobstructing. Electronically Signed: Clementina Vizcaino MD at 23:23 EST , Service support ,
== END ==
PROVIDERS: PCP Family Medicine; Referring Provider Urology; Visit Provider Urology
DX: N20.1 Calculus of ureter (principal)
CPT/HCPCS: 74018

== ENCOUNTER → 2020-06-21 08:23 | Outpatient (CLI) | payer SELFPAY, OTHER ==
[2019-12-25 13:06] VITALS: BMI 38.5
--- NOTE | 2020-06-21 08:25 | RAD_ITS ---
STUDY: X-RAY - ABDOMEN/PELVIS REASON FOR EXAM: Female, 50 years old. KIDNEY STONE HX. PREV. SURGERY. M.D. APPT THIS A.M. TECHNIQUE: Single AP view of the abdomen / pelvis. COMPARISON: Comparison is made with prior study dated 12/31/2019. FINDINGS: There is a moderate amount of colonic fecal material. The previously seen left-sided double-J stent catheter has been withdrawn. I suspect tiny nonobstructive bilateral intrarenal calculi. Normal soft tissue structures. Normal visualized osseous structures. RAD/Abdomen Single View IMPRESSION: Stable nonobstructive bilateral tiny intrarenal calculi. Electronically Signed: Mike Ponce, at 12:25 EDT , Service support ,
== END ==
PROVIDERS: PCP Family Medicine; Referring Provider Urology; Visit Provider Urology
DX: N20.0 Calculus of kidney (principal)
CPT/HCPCS: 74018

== ENCOUNTER 2022-09-05 06:28 | Inpatient (IN) | payer OTHER, SELFPAY ==
[2022-09-05] VITALS (13 sets, daily range): BP systolic 151–212; BP diastolic 86–128; PULSE 63–106; RESP 15–20; TEMP 36.5–37.1; O2SAT 92–98; BMI 41.5
--- NOTE | 2022-09-05 06:40 | CT_ITS ---
HISTORY: abdominal pain. TECHNIQUE: Helically acquired images were obtained of the abdomen and pelvis after the intravenous administration of 100mL Isovue-300. A radiation dose optimization technique was used for this scan. 513 images. COMPARISON: XR 06/21/2020. FINDINGS: LOWER CHEST: Lung bases clear. BOWEL: Bowel nondilated. Appendix not identified. Colonic diverticulosis without focal inflammatory change observed. PERITONEUM: No significant ascites. LIVER: 17.6 cm in length with fatty infiltration. GALLBLADDER/BILIARY TREE: 1.3 cm calcified gallstone with gallbladder wall thickening and pericholecystic stranding. Punctate calcification in the region of the distal common duct. SPLEEN/PANCREAS: Homogeneous and nonenlarged. KIDNEYS: 2 mm upper and lower pole calculi in both kidneys. No hydronephrosis. ADRENAL GLANDS: No nodules. VESSELS: No abdominal aortic aneurysm. Mild atherosclerosis. PELVIC ORGANS: 1.5 cm nodule in the endometrial cavity. Dominant follicle in the left ovary. BONES: Bilateral L5 spondylolysis with grade [address]/Abdomen/Pelvis W IV Cont ONLY IMPRESSION: Cholelithiasis with gallbladder wall thickening and pericholecystic edema, concerning for acute cholecystitis. Possible choledocholithiasis. Small nodule in the endometrial cavity. Recommend correlation with ultrasound or follow-up to assess for polyp, submucosal leiomyoma, or endometrial neoplasm. Hepatic steatosis with mild hepatomegaly. Colonic diverticulosis without acute diverticulitis. Small bilateral nonobstructing renal calculi. Electronically Signed: Maira Fowler MD at 8:13 EST ,
--- NOTE | 2022-09-05 06:41 | ED.VIS.GI ---
HPI HPI - GI History of Present Illness Chief Complaint: Nausea/Vomiting Narrative Narrative: 52-year-old female presenting with abdominal pain. She describes it as upper abdominal pain bilaterally. It is fairly diffuse other than the lower abdomen she says. She states this all started about 2 PM yesterday. She ate a normal lunch for her at noon yesterday. It was the same as the rest of the family and no one else is ill. She has not had a fever. She states that she does have nausea and vomiting. She denies diarrhea or constipation. She denies urinary complaints. Patient denies a fever. She has history of kidney stones but is not having flank pain. She has history of appendectomy. She states she had gallbladder problems in the past but has not had her gallbladder removed. [facility] Medical History HTN (hypertension) Hypothyroidism Home Medications fluoxetine 20 mg capsule 40 mg PO DAILY DEPRESSION 02/02/19 [History Last Taken 02/01/19] labetalol 200 mg tablet 200 mg PO BID HEART 02/02/19 [History Last Taken 12/25/19] pravastatin 40 mg tablet 40 mg PO QHS CHOLESTEROL 02/02/19 [History Last Taken 02/01/19] Allergy/AdvReac Type Severity Reaction Status Date / Time No Known Allergies Allergy Verified 09/05/22 06:29 Family History Brother Kidney stone Surgical History History of appendectomy Social History Smoking Status: Never smoker ROS ROS ED Constitutional Constitutional ED: Denies chills or fever(s) ENT ENT ED: Denies rhinorrhea or sore throat Cardiovascular Cardiovascular: Denies chest pain or palpitations Respiratory/Chest Respiratory/Chest: Denies cough or dyspnea Gastrointestinal Gastrointestinal: Reports abdominal pain, nausea and vomiting; Denies constipation or diarrhea Genitourinary Genitourinary ED: Denies dysuria or hematuria Musculoskeletal Musculoskeletal: Denies arthralgias Integumentary Reports abscess Neurologic Neurologic: Denies headache(s) or paresthesias Psychiatric Psychiatric: Denies anxiety or depression Endocrine Endocrinology: Denies polydipsia or polyphagia EXAM Physical Exam Const Vital Signs: 09/05/22 06:31 09/05/22 07:06 Temperature 97.9 F Temperature Source Temporal Pulse Rate 106 H 67 Respiratory Rate 20 H 15 Blood Pressure 212/128 H 187/104 H Blood Pressure Mean 156 131 Pulse Ox 98 95 Oxygen Delivery Method Room Air Room Air Positive well nourished General Appearance ED: NAD; Negative for pallor HEENT Reports moist mucous membranes normocephalic and atraumatic Eyes PERRL and EOMs intact bilaterally General Eye ED: Negative for pale conjunctiva or scleral icterus Neck no lymphadenopathy Resp normal respiratory effort and clear to auscultation bilaterally Auscultation: Negative for rales, rhonchi or wheezes Cardio regular rhythm Rate: tachycardic GI Palpation: tender LUQ and RUQ Neuro CN's II-XII intact bilaterally Sensorium / Orientation: alert, oriented to person, oriented to place and oriented to time Motor Exam: strength 5/5 throughout Psych mental status grossly normal and thought process normal Skin no wounds General Skin Exam: Negative for jaundice or pallor MDM MDM MDM Narrative Medical decision making narrative: 52-year-old female presenting with abdominal pain. She describes it as upper abdominal pain across the whole upper aspect of her abdomen. She does not have a sandy Cortes sign. She has had nausea and vomiting. No diarrhea or constipation. No fevers or chills. Patient states her last meal was at noon yesterday and she has been having pain and vomiting since then. Patient was medicated with morphine, Zofran, and given a liter of IV fluids. Blood work is obtained and she has a leukocytosis of 16.0, hemoglobin stable at 15, hematocrit 41.1, platelets 319, renal function and electrolytes unremarkable. Total bilirubin 2.4, AST 233, ALT 208, alkaline phosphatase 132, lipase within normal limits. On reevaluation patient is feeling improved with morphine. She states the pain is very mild. Her blood pressure also improved to 187/104. We will obtain a CT scan because the pain goes all the way across her abdomen on both sides. Lab work was discussed with Dr. Harding. Patient will be signed out to incoming ED physician for follow-up on CT possibly ultrasound and/or surgical consult. Impression: 1. abdominal pain 2. Nausea/vomiting 3. Transaminitis 4. Leukocytosis Lab Data Labs: Laboratory Results - last 24 hr 09/05/22 09/05/22 06:40 06:40 WBC 16.0 H RBC 5.02 Hgb 15.0 Hct 45.1 MCV 89.8 MCH 29.9 MCHC 33.3 RDW Std Deviation 44.9 H RDW Coeff of Shakir 13.9 Plt Count 319 MPV 10.2 Immature Gran % (Auto) 0.400 Neut % (Auto) 86.0 H Lymph % (Auto) 10.1 L [place] % (Auto) 3.3 Eos % (Auto) 0.0 Baso % (Auto) 0.2 Absolute Neuts (auto) 13.8 H Absolute Lymphs (auto) 1.61 Nucleated RBC % 0 Sodium 137 Potassium 3.8 Chloride 101 Carbon Dioxide 27.0 Anion Gap 9 BUN 13 Creatinine 0.74 Estim Creat Clear Calc 65.58 Est GFR (MDRD) Af Amer 104 Est GFR (MDRD) Non-Af 86 BUN/Creatinine Ratio 17.5 Glucose 138 H Calcium 9.7 Total Bilirubin 2.40 H AST 233 H ALT 208 H Alkaline Phosphatase 132 H Total Protein 8.4 H Albumin 3.9 Globulin 4.5 H Albumin/Globulin Ratio 0.9 Lipase 55 L Discharge Plan Triage Chief Complaint: Nausea/Vomiting ED Provider: Jose Landry Dx/Rx/DC Orders Prescriptions: No Action labetalol 200 MG tablet 200 mg PO BID pravastatin 40 MG tablet 40 mg PO QHS fluoxetine 20 MG capsule 40 mg PO DAILY Primary Care Provider: Uvaldo De León Referrals: Uvaldo De León DO [Primary Care Provider] -
[2022-09-05 06:45] LABS: Absolute Lymphocyte Count 1.61 X10^3/uL (0.83-4.51); Absolute Neutrophil Count 13.8 X10^3/uL (2.0-7.7); Basophil# 0.03 X10^3/uL; Basophil% 0.2 % (0-1); Hematocrit 45.1 % (37-47); Lymphocyte # 1.61 X10^3/ul (0.83-4.51); Lymphocyte % 10.1 % (19-41); Mean Corp Hgb Conc 33.3 g/dL (32-36); Mean Corpuscular Hgb 29.9 pg (27.0-32.0); Mean Corpuscular Volume 89.8 fL (81-99); Mean Platelet Vol. 10.2 fl (6.2-12.0); Monocyte# 0.52 X10^3/uL; Monocyte% 3.3 % (0-10); NRBC Flagged by Analyzer 0 % (0-5); Neutrophil # 13.75 X10^3/uL (2.7-7.7); Platelet Count 319 K/mm3 (150-450); RBC Distribution Width CV 13.9 % (11.6-14.6); RBC Distribution Width SD 44.9 fl (35.1-43.9); Red Blood Count 5.02 M/mm3 (4.2-5.4)
[2022-09-05 07:04] LABS: ALB/GLOB Ratio 0.9 RATIO (0.9-2.4); AST(SGOT) 233 U/L (15-37); Alanine Aminotransfer ALT/SGPT 208 U/L (13-56); Albumin, Serum 3.9 g/dL (3.2-5.0); Alkaline Phosphatase 132 U/L (45-117); Anion Gap 9 (5-15); BUN 13 mg/dL (7-18); BUN/Creat Ratio 17.5 RATIO (10-20); Calcium,Total 9.7 mg/dL (8.5-10.1); Chloride 101 mmol/L (98-107); Creatinine, Serum 0.74 mg/dL (0.55-1.02); EST Glomerular Filtration Rate 86 mL/min (>60); Est Glom Filt Rate - Afr Amer 104 mL/min (>60); Estimated Creatinine Clearance 65.58 ml/min; Globulin 4.5 g/dL (2.2-4.2); Glucose 138 mg/dL (74-106); Lipase 55 U/L (73-393); Potassium 3.8 mmol/L (3.5-5.1); Protein, Total 8.4 g/dL (6.4-8.2); Sodium Level 137 mmol/L (136-145)
[2022-09-05] MEDS: Morphine 4 MG/ML Syringe IV (07:05)
[2022-09-05] MEDS: Ondansetron 4 MG/2 ML Vial IV ×2 (07:05→14:22)
[2022-09-05] MEDS: 0.9% Normal Saline 1,000 ML 999 ML IV (07:05)
[2022-09-05] MEDS: HYDROmorphone 1 MG/ML Syringe IV ×2 (08:03→10:28)
--- NOTE | 2022-09-05 08:45 | US_ITS ---
HISTORY: abdominal pain. TECHNIQUE: Rose scale and color doppler imaging was performed of the right upper quadrant. 104 images. COMPARISON: None. FINDINGS: LIVER: 19.4 cm in length. Increased echogenicity without focal lesion demonstrated. No intrahepatic ductal dilatation. MAIN PORTAL VEIN: Patent with hepatopedal flow. COMMON BILE DUCT: 7-8 mm in diameter. GALLBLADDER: 1.6 cm gallstone in the distended gallbladder. 2 mm wall thickness, within normal limits. Mild pericholecystic fluid. Sonographic Cortes sign negative. PANCREAS: Partially obscured due to overlying bowel gas. RIGHT KIDNEY: 13.1 cm in length with a cortical thickness of 1.4 cm. 6 mm echogenic focus without hydronephrosis. US/Gallbladder IMPRESSION: Cholelithiasis with mild pericholecystic fluid, raising the possibility of acute cholecystitis in the appropriate clinical setting. Consider correlation with scintigraphy. Mildly dilated common bile duct. Consider ERCP or MRCP to evaluate for obstructing stone or other lesion. Hepatic steatosis with hepatomegaly. Nonobstructing right renal calculus. Electronically Signed: Maira Fowler MD at 10:24 EST ,
[2022-09-05 10:23] LABS: Bacteria 0 SEEN /hpf (None Seen); Mucous, Urine 0 SEEN /hpf (<or=2+)
[2022-09-05 10:32] LABS: Color, Urine Yellow (Yellow); Glucose, Dipstick Normal (Normal); Ketone-Dipstick 5 mg/dl (Negative); Leukocyte Esterase-Dipstick 25 /ul (Negative); Nitrite-Dipstick Negative (Negative); Occult Blood-Urine 10 /ul (Negative); Protein-Dipstick 30 mg/dl (Negative); Urine Bilirubin Dipstick Negative (Negative); Urine Clarity Sl. Cloudy (Clear); Urine Urobilinogen Normal (Normal)
[2022-09-05 10:42] LABS: Red Blood Cells-Urine 0-5 SEEN /hpf (0-5); Squamous Epithelial Cells - UA 0-5 SEEN /hpf (5-10); White Blood Cells 0-5 SEEN /hpf (0-5)
--- NOTE | 2022-09-05 11:03 | NURSING ---
MED SURG ROSIE ABD PAIN, CHOLECYSTITIS, LEUKOCYTOSIS, INTRACTABLE PAIN
--- NOTE | 2022-09-05 11:39 | PCM.HP.STD ---
HPI - General General Date of Admission: 09/05/22 Date of Service: 09/05/22 Chief Complaint: Progressive acute abdominal pain with associated nausea and vomiting HPI Narrative VANDA MERCADO, is a 52 F who presents to [facility] with approximately 12 hours of acute onset abdominal pain across her upper abdomen is associated with nausea, vomiting, and inability to tolerate p.o. intake. Patient states that she had a relatively normal lunch with [employer] yesterday and she recalls feeling a little bit queasy so she took a nap, but on awakening she felt abdominal pain across her entire upper abdomen and began with bilious vomiting. She reports that she tried to take some truncal water to help with her upset stomach, but this did not change her vomiting and her pain intensified. Patient presents with her and together they note that there was a similar episode approximately 4 years ago, but they are unclear on the details. They report that there is some simultaneous issue with a urinary tract infection and the gallbladder diagnosis was sidelined, but they report that their primary physician, Dr. De León always had been suspicious for gallbladder etiology. Patient's ER work-up is notable for CBC demonstrating leukocytosis of 16,000. She has a cholestatic pattern to her comprehensive metabolic panel as well as hyperbilirubinemia. CT imaging was concerning for cholecystitis with pericholecystic fluid and possible choledocholithiasis. Follow-up gallbladder ultrasound confirmed these findings and the common bile duct was measured at 7 mm. Patient has a past medical history of hypertension, kidney stones, and recurrent UTIs. Her also states that she may have undiagnosed sleep apnea as she frequently snores and will experience occasional apneic periods at night. Her prior abdominal surgical history consists of a laparoscopic appendectomy performed remotely. [facility] Medical History HTN (hypertension) Hypothyroidism Home Medications fluoxetine 20 mg capsule 20 mg PO DAILY DEPRESSION 02/02/19 [History Last Taken 09/03/22] labetalol 200 mg tablet 200 mg PO BID HEART 02/02/19 [History Last Taken 09/03/22] pravastatin 40 mg tablet 40 mg PO QHS CHOLESTEROL 02/02/19 [History Last Taken 09/03/22] Ravinder-X 2 cap PO/SL DAILY SUPPLEMENT 09/05/22 [History Last Taken 1 Week Ago ~08/29/22] cholecalciferol (vitamin D3) 25 mcg (1,000 unit) tablet (Vitamin D3) 50 mcg PO DAILY SUPPLEMENT 09/05/22 [History Last Taken 09/04/22] d-mannose 500 mg capsule 1,000 mg PO DAILY SUPPLEMENT 09/05/22 [History Last Taken 09/04/22] Allergy/AdvReac Type Severity Reaction Status Date / Time No Known Allergies Allergy Verified 09/05/22 06:29 Family History Brother Kidney stone Surgical History History of appendectomy Social History Smoking Status: Never smoker Vital Signs Vital Signs Vital Signs: 09/05/22 06:31 09/05/22 07:06 09/05/22 10:15 Temperature 97.9 F 98.5 F Temperature Source Temporal Oral Pulse Rate 106 H 67 74 Respiratory Rate 20 H 15 18 Blood Pressure 212/128 H 187/104 H 167/95 H Blood Pressure Mean 156 131 119 Pulse Ox 98 95 94 Oxygen Delivery Method Room Air Room Air Room Air Weight Weight: 219 lb 12.814 oz Body Mass Index (BMI) 41.5 Physical Exam Const alert and oriented x3 Constitutional Narrative: Mild distress from abdominal discomfort General Appearance: cooperative Resp Resp Narrative: Unlabored respirations, the patient's oxygen saturations oscillate between high 80s and mid 90s GI GI Narrative: Hirsute, nondistended, obese, a number of well-healed port site scars are present. Patient's abdomen is soft and there is moderate tenderness with palpation of the right upper quadrant but negative Cortes sign. Results Lab / Micro Data Result Diagrams: 09/05/22 06:40 09/05/22 06:40 Labs: Laboratory Results - last 24 hr 09/05/22 06:40: WBC 16.0 H, RBC 5.02, Hgb 15.0, Hct 45.1, MCV 89.8, MCH 29.9, MCHC 33.3, RDW Std Deviation 44.9 H, RDW Coeff of Shakir 13.9, Plt Count 319, MPV 10.2, Immature Gran % (Auto) 0.400, Neut % (Auto) 86.0 H, Lymph % (Auto) 10.1 L, [place] % (Auto) 3.3, Eos % (Auto) 0.0, Baso % (Auto) 0.2, Absolute Neuts (auto) 13.8 H, Absolute Lymphs (auto) 1.61, Nucleated RBC % 0 09/05/22 06:40: Sodium 137, Potassium 3.8, Chloride 101, Carbon Dioxide 27.0, Anion Gap 9, BUN 13, Creatinine 0.74, Estim Creat Clear Calc 65.58, Est GFR (MDRD) Af Amer 104, Est GFR (MDRD) Non-Af 86, BUN/Creatinine Ratio 17.5, Glucose 138 H, Calcium 9.7, Total Bilirubin 2.40 H, AST 233 H, ALT 208 H, Alkaline Phosphatase 132 H, Total Protein 8.4 H, Albumin 3.9, Globulin 4.5 H, Albumin/Globulin Ratio 0.9, Lipase 55 L 09/05/22 10:05: Urine Color Yellow, Urine Clarity Sl. Cloudy, Urine pH 7.0, Ur Specific [place] 1.010, Urine Protein 30 H, Urine Glucose (UA) Normal, Urine Ketones 5 H, Urine Occult Blood 10 H, Urine Nitrite Negative, Urine Bilirubin Negative, Urine Urobilinogen Normal, Ur Leukocyte Esterase 25 H, Urine RBC 0-5 SEEN, Urine WBC 0-5 SEEN, Ur Squamous Epith Cells 0-5 SEEN, Urine Bacteria 0 SEEN, Urine Mucus 0 SEEN Radiology Impression Abdomen/Pelvis CT 09/05/22 06:40 IMPRESSION: Cholelithiasis with gallbladder wall thickening and pericholecystic edema, concerning for acute cholecystitis. Possible choledocholithiasis. Small nodule in the endometrial cavity. Recommend correlation with ultrasound or follow-up to assess for polyp, submucosal leiomyoma, or endometrial neoplasm. Hepatic steatosis with mild hepatomegaly. Colonic diverticulosis without acute diverticulitis. Small bilateral nonobstructing renal calculi. Electronically Signed: Maira Fowler MD at 8:13 EST , Gallbladder Ultrasound 09/05/22 08:45 IMPRESSION: Cholelithiasis with mild pericholecystic fluid, raising the possibility of acute cholecystitis in the appropriate clinical setting. Consider correlation with scintigraphy. Mildly dilated common bile duct. Consider ERCP or MRCP to evaluate for obstructing stone or other lesion. Hepatic steatosis with hepatomegaly. Nonobstructing right renal calculus. Electronically Signed: Maira Fowler MD at 10:24 EST , Assessment & Plan Assessment/Plan (1) Choledocholithiasis with acute cholecystitis: PLAN: This is a 52-year-old female who presents with signs and symptoms of cholecystitis with choledocholithiasis. Latter seems visually confirmed on CT imaging of the abdomen pelvis and indirectly suggested by patient's cholestatic pattern to comprehensive metabolic panel and dilated common bile duct. I have discussed with patient and her the relevant anatomy and physiology of this diagnosis and the recommended management to include ERCP as well as cholecystectomy. They are understanding of this information and eager to be underway with treatment given patient's persistent symptoms. Given the probable finding of a persistent common duct stone, gastroenterology has been consulted and will plan for ERCP today. ER has also been asked to initiate antibiotics for empiric coverage of enteric pathogens given the scenario of biliary stasis. Neuro: As needed Dilaudid, as needed acetaminophen Pulm/CV: Incentive spirometer, O2 as needed, IV metoprolol every 6 hours scheduled to replace patient's home labetalol. Will require further follow-up and potential as needed Rx FEN/GI: Trend electrolytes, repeat CMP in a.m., gastroenterology consult, n.p.o. in anticipation of gastroenterology procedure, plan for laparoscopic cholecystectomy with intraoperative cholangiogram tomorrow 09/06/2022 : No current issues Heme/ID: Trend CBC, empiric coverage with Zosyn Endo: No current issues Proph: Apply SCDs Dispo: Admit to inpatient Charges/Coding Visit Charges Inpatient E&M: 34329 Init Hosp L2
--- NOTE | 2022-09-05 13:42 | EKG12_ITS ---
Test Reason : PRE-OP Blood Pressure : / mmHG Vent. Rate : 062 BPM Atrial Rate : 062 BPM P-R Int : 170 ms QRS Dur : 084 ms QT Int : 448 ms P-R-T Axes : 050 010 016 degrees QTc Int : 454 ms Normal sinus rhythm Normal ECG Confirmed by VENTURA HOYOS, SIENA ([id number]), online editor CURTIS SERRA ([id number]) on 09/12/2022 8:02:00 AM Referred By: ROSIE Confirmed By:SIENA WHITEHEAD MD
[2022-09-05] MEDS: 0.9% Normal Saline 1,000 ML 125 ML IV ×2 (14:22→22:25)
[2022-09-05] MEDS: Metoprolol Tartrate 5 MG/5 ML Vial IV (14:23)
[2022-09-05 16:13] LABS: Internal QC Validated? YES +Cl - CLEAR BKGD; Pregnancy, Urine Negative Negative
--- NOTE | 2022-09-05 16:35 | NURSING ---
1X APRESOLINE DOSE IS STILL UNVERIFIED BY PHARMACY
[2022-09-05] MEDS: hydrALAZINE 20 MG/ML Vial 10 MG IV (16:39)
--- NOTE | 2022-09-05 17:06 | CON.PCM_ITS ---
Assessment & Plan Assessment/Plan (1) Choledocholithiasis with acute cholecystitis: PLAN: obstructive Jaundice secondary to choledocholithiasis. She will undergo elective cholecystectomy. The plan is to do an ERCP after she gets it a cholecystectomy. The patient was aware of possible risk and benefits of the procedure pancreatitis, sepsis, perforation. Recommended continue IV fluids and n.p.o. HPI Consult Data Date of Consult: 09/05/22 HPI Narrative Reason for Consultation: Choledocholithiasis HPI Narrative: VANDA MERCADO, is a 52 F who presents with acute onset abdominal pain after eating.? She describes it as upper abdominal pain bilaterally.? It is fairly diffuse other than the lower abdomen she says.? She states this all started about 2 PM yesterday.? She ate a normal lunch for her at noon yesterday.? It was the same as the rest of the family and no one else is ill.? She has not had a fever. ?She states that she does have nausea and vomiting.? She denies diarrhea or constipation.? She denies urinary complaints.? Patient denies a fever.? She has history of kidney stones but is not having flank pain.? She has history of appendectomy.? She states she had gallbladder problems in the past but has not had her gallbladder removed. She underwent biochemical analysis and was discovered to have a cholestatic hepatitis with a bilirubin of 3, AST of 324, ALT of 200 and alkaline phosphatase of 275. Her INR was normal at 1 and her white blood cell count was mildly elevated at 14,000. she underwent a ultrasound that showed a large stone in the gallbladder. A CT scan abdomen/pelvis that displayed a filling defect of the distal common bile duct. [facility] Medical History (Updated 09/05/22 @ 17:[address] Ashvin Guzman, DO) High cholesterol HTN (hypertension) Hypothyroidism Kidney stones Rheumatic fever Home Medications fluoxetine 20 mg capsule 20 mg PO DAILY DEPRESSION 02/02/19 [History Last Taken 09/03/22] labetalol 200 mg tablet 200 mg PO BID HEART 02/02/19 [History Last Taken 09/03/22] pravastatin 40 mg tablet 40 mg PO QHS CHOLESTEROL 02/02/19 [History Last Taken 09/03/22] Ravinder-X 2 cap PO/SL DAILY SUPPLEMENT 09/05/22 [History Last Taken 1 Week Ago ~08/29/22] cholecalciferol (vitamin D3) 25 mcg (1,000 unit) tablet (Vitamin D3) 50 mcg PO DAILY SUPPLEMENT 09/05/22 [History Last Taken 09/04/22] d-mannose 500 mg capsule 1,000 mg PO DAILY SUPPLEMENT 09/05/22 [History Last Taken 09/04/22] Allergy/AdvReac Type Severity Reaction Status Date / Time No Known Allergies Allergy Verified 09/05/22 06:29 Family History (Updated 09/05/22 @ 17:[address] Ashvin Guzman DO) Brother Kidney stone Father Hypertension Surgical History H/O shoulder surgery History of appendectomy Social History Smoking Status: Never smoker ROS Review of Systems ROS Unobtainable: other Constitutional Constitutional: Denies fatigue, fever(s), poor appetite, weight gain or weight loss ENT HEENT: Denies mouth lesions Cardiovascular Cardiovascular: Denies abdominal bloating, abdominal edema or abdominal pain Respiratory/Chest Respiratory/Chest: Denies change in mental status, change in phlegm color, chest congestion or chest tightness Gastrointestinal Gastrointestinal: Denies belching, bloating, change in bowel habits, change in stool character, chewing difficulty, coffee ground emesis, constipation, cramping, diarrhea, dyspepsia, dysphagia, early satiety, excessive flatus, fecal incontinence, heartburn, hematemesis, hematochezia, hemorrhoids, loose stools, melena, nausea, odynophagia, rectal bleeding, tenesmus, vomiting or weight changes Genitourinary Genitourinary: Denies abdominal discomfort, burning urination or itching Musculoskeletal Musculoskeletal: Reports as per HPI; Denies muscle weakness or myalgias Integumentary Integumentary: Denies jaundice Neurologic Neurologic: Denies lack of coordination or weakness Psychiatric Psychiatric: Denies confusion, depression, memory loss, mood swings, paranoia or suicidal ideation Endocrine Endocrinology: Denies systems reviewed and no addt'l complaints, except as documented Hematologic/Lymphatic Hematologic/Lymphatic: Denies anemia, easy bleeding, easy bruising or lymp hadenopathy Allergic/Immunologic Allergic/Immunologic: Denies systems reviewed and no addt'l complaints, except as documented Physical Exam Narrative Physical exam: General: Alert, Oriented x3, Cooperative, obese HEENT: Atraumatic Oral: Moist Mucosa Neck: Supple Lungs: Clear to auscultation Cardiovascular: HS I+II, regular, no murmurs Abdomen: Bowel Sounds Present, Soft, Non Tender Extremities: No edema Skin: No rashes, No breakdown Neurological: Grossly intact Psych/Mental Status: Appropriate Lab / Micro Data Result Diagrams: 09/06/22 05:50 09/05/22 06:40 Labs: Laboratory Results - last 24 hr 09/06/22 05:50: WBC 8.3, RBC 4.39, Hgb 13.0, Hct 40.5, MCV 92.3, MCH 29.6, MCHC 32.1, RDW Std Deviation 48.2 H, RDW Coeff of Shakir 14.3, Plt Count 250, MPV 10.0, Immature Gran % (Auto) 0.500, Neut % (Auto) 71.2 H, Lymph % (Auto) 20.5, [place] % (Auto) 6.6, Eos % (Auto) 0.7, Baso % (Auto) 0.5, Absolute Neuts (auto) 5.9, Absolute Lymphs (auto) 1.70, Nucleated RBC % 0 09/06/22 05:50: Total Bilirubin 2.30 H, Direct Bilirubin 0.54 H, AST 84 H, ALT 144 H, Alkaline Phosphatase 110, Total Protein 6.9, Albumin 3.2, Globulin 3.7, Lipase 222 Charges/Coding Visit Charges Inpatient E&M: 69923 Init Hosp L2
--- NOTE | 2022-09-05 17:33 | PCM.CONS.GEN ---
Assessment & Plan Assessment/Plan (1) HTN (hypertension): PLAN: Hypertensive urgency improved after hydralazine. Exacerbated by the cholecystitis and choledocholithiasis and patient with known history of hypertension. Patient takes labetalol 20 mg twice daily. We will give her a dose of labetalol. Agree with PRN hydralazine. Once patient is able to record take oral after her procedures, would recommend resuming her labetalol. (2) Choledocholithiasis with acute cholecystitis: PLAN: On Zosyn GI on consult for ERCP Definitive management per general surgery. PLAN: Plan VTE prophylaxis: SCDs have been ordered. Thank you for the consult. The hospital service will continue to follow along during this hospitalization. HPI Consult Data Date of Consult: 09/05/22 HPI Narrative Reason for Consultation: Consult requested by Dr. Harding for hypertension mgmt. HPI Narrative: VANDA MERCADO, is a 52 F who presents with abdominal pain. Abdominal pain began yesterday on the right upper quadrant and progressively got worse with associated nausea and vomiting.. The patient has similar episode about 4 years prior but do not know the details. So patient presented to the emergency room and had a CAT scan that showed cholelithiasis with gallbladder wall thickening and pericholecystic edema concerning for acute cholecystitis. Possible choledocholithiasis. Ultrasound performed showing mildly dilated common bile duct. Patient was admitted to the general surgery service. While on the floor, patient's blood pressure has been elevated into the 200s. Patient did receive hydralazine and her blood pressure has improved into the 150s systolic. Patient does have a history of hypertension but did not take her medications today. Currently, the patient is feeling much better but still is having right upper quadrant abdominal pain. [facility] Medical History (Updated 09/05/22 @ 17:[address] Ashvin Guzman, ) High cholesterol HTN (hypertension) Hypothyroidism Kidney stones Rheumatic fever Home Medications fluoxetine 20 mg capsule 20 mg PO DAILY DEPRESSION 02/02/19 [History Last Taken 09/03/22] labetalol 200 mg tablet 200 mg PO BID HEART 02/02/19 [History Last Taken 09/03/22] pravastatin 40 mg tablet 40 mg PO QHS CHOLESTEROL 02/02/19 [History Last Taken 09/03/22] Ravinder-X 2 cap PO/SL DAILY SUPPLEMENT 09/05/22 [History Last Taken 1 Week Ago ~08/29/22] cholecalciferol (vitamin D3) 25 mcg (1,000 unit) tablet (Vitamin D3) 50 mcg PO DAILY SUPPLEMENT 09/05/22 [History Last Taken 09/04/22] d-mannose 500 mg capsule 1,000 mg PO DAILY SUPPLEMENT 09/05/22 [History Last Taken 09/04/22] Allergy/AdvReac Type Severity Reaction Status Date / Time No Known Allergies Allergy Verified 09/05/22 06:29 Family History (Updated 09/05/22 @ 17:[address] Ashvin Guzman DO) Brother Kidney stone Father Hypertension Surgical History H/O shoulder surgery History of appendectomy Social History Smoking Status: Never smoker Physical Exam Const alert and no apparent distress HEENT normocephalic and hearing grossly normal bilaterally Resp normal respiratory effort, no retractions, no use of accessory muscles and clear to auscultation bilaterally Cardio regular rate, regular rhythm, S1 normal heart sound and S2 normal heart sound GI non-distended GI Narrative: Right upper quadrant abdominal pain. Obese. Extremity normal to inspection and no clubbing, cyanosis or edema Neuro oriented x3 and no focal motor deficits Sensorium / Orientation: awake and alert Psych affect normal Lab / Micro Data Result Diagrams: 09/05/22 06:40 09/05/22 06:40 Labs: Laboratory Results - last 24 hr 09/05/22 06:40: WBC 16.0 H, RBC 5.02, Hgb 15.0, Hct 45.1, MCV 89.8, MCH 29.9, MCHC 33.3, RDW Std Deviation 44.9 H, RDW Coeff of Shakir 13.9, Plt Count 319, MPV 10.2, Immature Gran % (Auto) 0.400, Neut % (Auto) 86.0 H, Lymph % (Auto) 10.1 L, [place] % (Auto) 3.3, Eos % (Auto) 0.0, Baso % (Auto) 0.2, Absolute Neuts (auto) 13.8 H, Absolute Lymphs (auto) 1.61, Nucleated RBC % 0 09/05/22 06:40: Sodium 137, Potassium 3.8, Chloride 101, Carbon Dioxide 27.0, Anion Gap 9, BUN 13, Creatinine 0.74, Estim Creat Clear Calc 65.58, Est GFR (MDRD) Af Amer 104, Est GFR (MDRD) Non-Af 86, BUN/Creatinine Ratio 17.5, Glucose 138 H, Calcium 9.7, Total Bilirubin 2.40 H, AST 233 H, ALT 208 H, Alkaline Phosphatase 132 H, Total Protein 8.4 H, Albumin 3.9, Globulin 4.5 H, Albumin/Globulin Ratio 0.9, Lipase 55 L 09/05/22 10:05: Urine Color Yellow, Urine Clarity Sl. Cloudy, Urine pH 7.0, Ur Specific [place] 1.010, Urine Protein 30 H, Urine Glucose (UA) Normal, Urine Ketones 5 H, Urine Occult Blood 10 H, Urine Nitrite Negative, Urine Bilirubin Negative, Urine Urobilinogen Normal, Ur Leukocyte Esterase 25 H, Urine RBC 0-5 SEEN, Urine WBC 0-5 SEEN, Ur Squamous Epith Cells 0-5 SEEN, Urine Bacteria 0 SEEN, Urine Mucus 0 SEEN 09/05/22 16:03: Urine Test Negative Radiology Impression Abdomen/Pelvis CT 09/05/22 06:40 IMPRESSION: Cholelithiasis with gallbladder wall thickening and pericholecystic edema, concerning for acute cholecystitis. Possible choledocholithiasis. Small nodule in the endometrial cavity. Recommend correlation with ultrasound or follow-up to assess for polyp, submucosal leiomyoma, or endometrial neoplasm. Hepatic steatosis with mild hepatomegaly. Colonic diverticulosis without acute diverticulitis. Small bilateral nonobstructing renal calculi. Electronically Signed: Maira Fowler MD at 8:13 EST , Gallbladder Ultrasound 09/05/22 08:45 IMPRESSION: Cholelithiasis with mild pericholecystic fluid, raising the possibility of acute cholecystitis in the appropriate clinical setting. Consider correlation with scintigraphy. Mildly dilated common bile duct. Consider ERCP or MRCP to evaluate for obstructing stone or other lesion. Hepatic steatosis with hepatomegaly. Nonobstructing right renal calculus. Electronically Signed: Maira Fowler MD at 10:24 EST , Charges/Coding Visit Charges Inpatient E&M: 83825 Init Hosp L2
[2022-09-05] MEDS: Acetaminophen 500 MG Tablet PO (20:58)
[2022-09-05] MEDS: Labetalol 200 MG Tablet PO (20:58)
[2022-09-06] VITALS (16 sets, daily range): BP systolic 119–164; BP diastolic 74–105; PULSE 66–88; RESP 16–20; TEMP 2.6–36.8; O2SAT 92–99; BMI 41.5
[2022-09-06] MEDS: 0.9% Normal Saline 1,000 ML 125 ML IV ×3 (05:33→18:38)
[2022-09-06 06:28] LABS: Absolute Neutrophil Count 5.9 X10^3/uL (2.0-7.7); Basophil# 0.04 X10^3/uL; Basophil% 0.5 % (0-1); Eosinophil# 0.06 X10^3/uL; Eosinophils% 0.7 % (0-5); Hematocrit 40.5 % (37-47); Lymphocyte % 20.5 % (19-41); Mean Corp Hgb Conc 32.1 g/dL (32-36); Mean Corpuscular Hgb 29.6 pg (27.0-32.0); Mean Corpuscular Volume 92.3 fL (81-99); Monocyte# 0.55 X10^3/uL; Monocyte% 6.6 % (0-10); NRBC Flagged by Analyzer 0 % (0-5); Neutrophil # 5.92 X10^3/uL (2.7-7.7); Neutrophil % 71.2 % (47-70); Platelet Count 250 K/mm3 (150-450); RBC Distribution Width CV 14.3 % (11.6-14.6); RBC Distribution Width SD 48.2 fl (35.1-43.9); Red Blood Count 4.39 M/mm3 (4.2-5.4); White Blood Count 8.3 K/mm3 (4.4-11.0)
--- NOTE | 2022-09-06 06:55 | PN.SURG_ITS ---
Subjective Subjective Patient seen and evaluated in Dr. Jefry Harding's absence today. She is still complaining of back pain. She has not been up and ambulating. Objective Data Objective Data Vital Signs: Vital Signs Temp Pulse Resp BP Pulse Ox O2 Del Method 97.3 F L 76 16 122/74 H 97 Room Air 09/06/22 02:30 09/06/22 02:30 09/06/22 02:30 09/06/22 02:30 09/06/22 02:30 09/06/22 02:30 Oxygen Delivery Method Room Air Weight: 220 lb 3.869 oz Body Mass Index (BMI) 41.5 Intake & Output: Intake and Output for Last 24 Hours 09/04/22 09/05/22 09/06/22 23:59 23:59 23:59 Intake Total 2827.25 / 2827.25 941.67 / 941.67 Output Total 1300 / 1300 Balance 2827.25 / 1527.25 -358.33 / -358.33 Lab / Micro Data Result Diagrams: 09/06/22 05:50 09/05/22 06:40 Labs: Laboratory Results - last 24 hr 09/05/22 06:40: Sodium 137, Potassium 3.8, Chloride 101, Carbon Dioxide 27.0, Anion Gap 9, BUN 13, Creatinine 0.74, Estim Creat Clear Calc 65.58, Est GFR (MDRD) Af Amer 104, Est GFR (MDRD) Non-Af 86, BUN/Creatinine Ratio 17.5, Glucose 138 H, Calcium 9.7, Total Bilirubin 2.40 H, AST 233 H, ALT 208 H, Alkaline Phosphatase 132 H, Total Protein 8.4 H, Albumin 3.9, Globulin 4.5 H, Albumin/Globulin Ratio 0.9, Lipase 55 L 09/05/22 10:05: Urine Color Yellow, Urine Clarity Sl. Cloudy, Urine pH 7.0, Ur Specific [place] 1.010, Urine Protein 30 H, Urine Glucose (UA) Normal, Urine Ketones 5 H, Urine Occult Blood 10 H, Urine Nitrite Negative, Urine Bilirubin Negative, Urine Urobilinogen Normal, Ur Leukocyte Esterase 25 H, Urine RBC 0-5 SEEN, Urine WBC 0-5 SEEN, Ur Squamous Epith Cells 0-5 SEEN, Urine Bacteria 0 SEEN, Urine Mucus 0 SEEN 09/05/22 16:03: Urine Test Negative 09/06/22 05:50: WBC 8.3, RBC 4.39, Hgb 13.0, Hct 40.5, MCV 92.3, MCH 29.6, MCHC 32.1, RDW Std Deviation 48.2 H, RDW Coeff of Shakir 14.3, Plt Count 250, MPV 10.0, Immature Gran % (Auto) 0.500, Neut % (Auto) 71.2 H, Lymph % (Auto) 20.5, [place] % (Auto) 6.6, Eos % (Auto) 0.7, Baso % (Auto) 0.5, Absolute Neuts (auto) 5.9, Absolute Lymphs (auto) 1.70, Nucleated RBC % 0 Radiography Diagnostic Testing: Radiology Impression Abdomen/Pelvis CT 09/05/22 06:40 IMPRESSION: Cholelithiasis with gallbladder wall thickening and pericholecystic edema, concerning for acute cholecystitis. Possible choledocholithiasis. Small nodule in the endometrial cavity. Recommend correlation with ultrasound or follow-up to assess for polyp, submucosal leiomyoma, or endometrial neoplasm. Hepatic steatosis with mild hepatomegaly. Colonic diverticulosis without acute diverticulitis. Small bilateral nonobstructing renal calculi. Electronically Signed: Maira Fowler MD at 8:13 EST , Gallbladder Ultrasound 09/05/22 08:45 IMPRESSION: Cholelithiasis with mild pericholecystic fluid, raising the possibility of acute cholecystitis in the appropriate clinical setting. Consider correlation with scintigraphy. Mildly dilated common bile duct. Consider ERCP or MRCP to evaluate for obstructing stone or other lesion. Hepatic steatosis with hepatomegaly. Nonobstructing right renal calculus. Electronically Signed: Maira Fowler MD at 10:24 EST , Physical Exam GI GI Narrative: Abdomen: Markedly overweight, distended, bowel sounds present diminished, no focal tenderness Assessment & Plan Assessment/Plan (1) Choledocholithiasis with acute cholecystitis: PLAN: I will repeat laboratory today. I anticipate a laparoscopic cholecystectomy with cholangiograms. If feasible I will proceed with a laparoscopic common bile duct exploration. If not feasible then my understanding is that the patient may have a postoperative ERCP with Dr. Zaragoza Friend. I have discussed in detail the technique, benefit, risk, alternatives. My understanding is that we are scheduled later today to proceed. I have encouraged incentive spirometry and ambulation as soon as possible. Romeo Roy M.D., F.A.C.S.
[2022-09-06 06:58] LABS: AST(SGOT) 84 U/L (15-37); Alanine Aminotransfer ALT/SGPT 144 U/L (13-56); Albumin, Serum 3.2 g/dL (3.2-5.0); Alkaline Phosphatase 110 U/L (45-117); Bilirubin, Direct 0.54 mg/dL (0.00-0.30); Globulin 3.7 g/dL (2.2-4.2); Lipase 222 U/L (73-393); Protein, Total 6.9 g/dL (6.4-8.2)
[2022-09-06] MEDS: Acetaminophen 500 MG Tablet PO (07:53)
--- NOTE | 2022-09-06 09:43 | PN.HOSP_ITS ---
Subjective Subjective Follow-up on medical management/Hypertension/acute cholecystitis: Patient was seen and examined. Her pain is fairly controlled. Denied any nausea or vomiting. She will be going for laparoscopic cholecystectomy today. Objective Data Objective Data Vital Signs: Vital Signs Temp Pulse Resp BP Pulse Ox O2 Del Method 98.1 F 74 18 135/85 H 97 Room Air 09/06/22 07:48 09/06/22 07:48 09/06/22 07:48 09/06/22 07:48 09/06/22 07:48 09/06/22 07:48 Oxygen Delivery Method Room Air Weight: 99.9 kg Body Mass Index (BMI) 41.5 Intake & Output: Intake and Output for Last 24 Hours 09/04/22 09/05/22 09/06/22 23:59 23:59 23:59 Intake Total 2827.25 / 2827.25 941.67 / 941.67 Output Total 1300 / 1300 Balance 2827.25 / 1527.25 -358.33 / -358.33 Lab / Micro Data Result Diagrams: 09/06/22 05:50 09/05/22 06:40 Labs: Laboratory Results - last 24 hr 09/05/22 10:05: Urine Color Yellow, Urine Clarity Sl. Cloudy, Urine pH 7.0, Ur Specific [place] 1.010, Urine Protein 30 H, Urine Glucose (UA) Normal, Urine Ketones 5 H, Urine Occult Blood 10 H, Urine Nitrite Negative, Urine Bilirubin Negative, Urine Urobilinogen Normal, Ur Leukocyte Esterase 25 H, Urine RBC 0-5 SEEN, Urine WBC 0-5 SEEN, Ur Squamous Epith Cells 0-5 SEEN, Urine Bacteria 0 SEEN, Urine Mucus 0 SEEN 09/05/22 16:03: Urine Test Negative 09/06/22 05:50: WBC 8.3, RBC 4.39, Hgb 13.0, Hct 40.5, MCV 92.3, MCH 29.6, MCHC 32.1, RDW Std Deviation 48.2 H, RDW Coeff of Shakir 14.3, Plt Count 250, MPV 10.0, Immature Gran % (Auto) 0.500, Neut % (Auto) 71.2 H, Lymph % (Auto) 20.5, [place] % (Auto) 6.6, Eos % (Auto) 0.7, Baso % (Auto) 0.5, Absolute Neuts (auto) 5.9, Absolute Lymphs (auto) 1.70, Nucleated RBC % 0 09/06/22 05:50: Total Bilirubin 2.30 H, Direct Bilirubin 0.54 H, AST 84 H, ALT 144 H, Alkaline Phosphatase 110, Total Protein 6.9, Albumin 3.2, Globulin 3.7, Lipase 222 Radiography Diagnostic Testing: Radiology Impression Gallbladder Ultrasound 09/05/22 08:45 IMPRESSION: Cholelithiasis with mild pericholecystic fluid, raising the possibility of acute cholecystitis in the appropriate clinical setting. Consider correlation with scintigraphy. Mildly dilated common bile duct. Consider ERCP or MRCP to evaluate for obstructing stone or other lesion. Hepatic steatosis with hepatomegaly. Nonobstructing right renal calculus. Electronically Signed: Maira Fowlre MD at 10:24 EST Reading Location ID and State: [facility] / [place] Tel , Service support , Physical Exam Narrative Physical exam: General: Alert, Oriented x3, Cooperative, obese HEENT: Atraumatic Oral: Moist Mucosa Neck: Supple Lungs: Clear to auscultation Cardiovascular: HS I+II, regular, no murmurs Abdomen: Bowel Sounds Present, Soft, Non Tender Extremities: No edema Skin: No rashes, No breakdown Neurological: Grossly intact Psych/Mental Status: Appropriate Assessment & Plan Assessment/Plan (1) HTN (hypertension): (2) Choledocholithiasis with acute cholecystitis: PLAN: Plan 1. Hypertensive urgency, blood pressures improved Continue on labetalol with hydralazine as needed 2. Acute cholecystitis with possible choledocholithiasis LFT's remain about the same Laparoscopic cholecystectomy planned for today Follow-up on general surgery recommendations 3. Depression, continue on fluoxetine after surgery 4. Hyperlipidemia, continue statin 5. DVT prophylaxis?Per primary team; early ambulation recommended Charges/Coding Visit Charges Inpatient E&M: 41558 Subs Hosp L2
[2022-09-06] MEDS: FLUoxetine 20 MG Capsule PO (10:56)
[2022-09-06] MEDS: Labetalol 200 MG Tablet PO ×2 (10:56→21:11)
--- NOTE | 2022-09-06 12:00 | PCM.PROGNOTE ---
Subjective Subjective Patient does not have any abdominal pain at this time it is scheduled for elective cholecystectomy today. Objective Data Objective Data Vital Signs: Vital Signs Temp Pulse Resp BP Pulse Ox O2 Del Method O2 Flow Rate 97.8 F 84 20 H 143/98 H 95 Nasal Cannula 2 09/06/22 16:02 09/06/22 17:00 09/06/22 17:00 09/06/22 17:00 09/06/22 17:00 09/06/22 17:00 09/06/22 17:00 Oxygen Flow Rate (L/min) 2 Oxygen Delivery Method Nasal Cannula Weight: 220 lb 3.869 oz Body Mass Index (BMI) 41.5 Intake & Output: Intake and Output for Last 24 Hours 09/04/22 09/05/22 09/06/22 23:59 23:59 23:59 Intake Total 2827.25 / 2827.25 2041.67 / 2041.67 Output Total 1300 / 1300 Balance 2827.25 / 1527.25 741.67 / 741.67 Lab / Micro Data Result Diagrams: 09/06/22 05:50 09/05/22 06:40 Labs: Laboratory Results - last 24 hr 09/06/22 05:50: WBC 8.3, RBC 4.39, Hgb 13.0, Hct 40.5, MCV 92.3, MCH 29.6, MCHC 32.1, RDW Std Deviation 48.2 H, RDW Coeff of Shakir 14.3, Plt Count 250, MPV 10.0, Immature Gran % (Auto) 0.500, Neut % (Auto) 71.2 H, Lymph % (Auto) 20.5, [place] % (Auto) 6.6, Eos % (Auto) 0.7, Baso % (Auto) 0.5, Absolute Neuts (auto) 5.9, Absolute Lymphs (auto) 1.70, Nucleated RBC % 0 09/06/22 05:50: Total Bilirubin 2.30 H, Direct Bilirubin 0.54 H, AST 84 H, ALT 144 H, Alkaline Phosphatase 110, Total Protein 6.9, Albumin 3.2, Globulin 3.7, Lipase 222 Physical Exam Narrative Physical exam: General: Alert, Oriented x3, Cooperative, obese HEENT: Atraumatic Oral: Moist Mucosa Neck: Supple Lungs: Clear to auscultation Cardiovascular: HS I+II, regular, no murmurs Abdomen: Bowel Sounds Present, Soft, Non Tender Extremities: No edema Skin: No rashes, No breakdown Neurological: Grossly intact Psych/Mental Status: Appropriate Assessment & Plan Assessment/Plan (1) Choledocholithiasis with acute cholecystitis: PLAN: Patient will undergo elective cholecystectomy. Patient will have an elective cholecystectomy and if there is a filling defect in the distal common bile duct she need a will ERCP.
--- NOTE | 2022-09-06 14:05 | GALL_PTH ---
PATIENT: VANDA MERCADO LOC: MS3 U#:[id number] AGE/SX: 52/F ROOM: [facility] RE09/05/[address]: Dr. Jefry Harding MD : 1970 BED: 1 DIS: 09/07/2022 SPEC #: [id number] RECD: 09/06/22 16:22 STATUS: LOUISE RESam #: [id number] MARKO: 09/06/22 14:[address]: Jefry Harding DEPT: SURGICAL PATHOLOGY RECD BY: Mary De La Garza ENTERED: 09/07/22 07:51 SP TYPE: AMBAR BURNS DR: MD Dr. Ashvin Ricketts DO Dr. Nolan Byler, DO Tissues: Gallbladder, NOS Procedures: Surgery Specimen Level III HEADER OPERATION: Laparoscopic cholecystectomy, IOC PRE-OP DIAGNOSIS: Choledocholithiasis with acute cholecystitis TISSUE SUBMITTED: Gallbladder MICROSCOPIC DIAGNOSIS Gallbladder, cholecystectomy: Acute and chronic cholecystitis and cholesterolosis. Reactive epithelial changes. /SJ 09/10/22 COMMENT No stones are identified in the container or in the gallbladder. MICROSCOPIC DESCRIPTION Slides are reviewed. GROSS DESCRIPTION Received is one container labeled with the patient's name and designated gallbladder. The specimen consists of a gallbladder measuring 8.5 cm in length and 3.5 cm in diameter. The external surface is pink-chou, smooth and glistening for the most part. Focally it is granular, hemorrhagic and contains cautery artifact. The gallbladder contains thick green-yellow mucoid bile. No stones are identified in the container or in the gallbladder. The mucosa shows a chou-yellowish polyp measuring 0.3 cm in greatest dimension. The mucosa also shows several yellowish streaks consistent with cholesterolosis. The gallbladder wall measures up to 0.4 cm in thickness. Drain Cleaner Plumber sections from the gallbladder and the cystic duct are submitted in one cassette. The polyp is submitted in entirety. / LEILANI:chel 09/07/2022 :2 [facility]: [id number]
--- NOTE | 2022-09-06 14:30 | RAD_ITS ---
STUDY: INTRAOPERATIVE CHOLANGIOGRAM. REASON FOR EXAM: Female, 52 years old. LAP JUSTIN WITH IOC FLUOROSCOPY TIME (if supplied): ( 42.2 seconds ) minutes/seconds. A cine loop of 87 images was obtained. TECHNIQUE: Intraoperative Cholangiogram was performed by the surgeon. Imaging was submitted. COMPARISON: None. FINDINGS: Contrast was injected. Imaging was submitted. Mild dilatation of the common bile duct. No intraluminal filling defect is seen. There is free flow of contrast into the duodenum. RAD/Cholangiogram/ O R,Initial IMPRESSION: No evidence of filling defects. Mildly dilated common bile Electronically Signed: Mkie Ponce MD at 15:17 EST ,
[2022-09-06] MEDS: Lactated Ringers 1,000 ML 15 ML IV (15:15)
--- NOTE | 2022-09-06 15:16 | CASEMGMT ---
RN CM NOTE: RN CM to room to complete assessment. Pt out of room/@ surgery. RN CM to complete assessment @ a later time. Enrico BSN RN CM
--- NOTE | 2022-09-06 15:46 | OP.PCM_ITS ---
Report of Operation Date of Procedure: 09/06/22 Pre-Operative Diagnosis: Acute cholecystitis cholelithiasis possible choledocho lithiasis Post-Operative Diagnosis: Acute cholecystitis cholelithiasis Surgery/Procedure Performed:: Laparoscopic cholecystectomy with cholangiograms Description of Surgical Findings:: Timeout informed consent was obtained. 52-year-old female was taken to the operating placed on the table underwent general endotracheal intubation esthesia. Ancef 2 g were given intravenously. The abdomen was sterilely prepped and draped. 0.25% Marcaine was used as a local anesthetic. The skin sites were reanesthetized. A total of 30 cc was used. A supra and vertical vertical incision was created holding sutures of 0 Vicryl placed varies needle inserted saline drop test performed the abdomen was insufflated with CO2 to a pressure of 12 mm of pressure. 10 Castillo trocar inserted. 10 laparoscope inserted. No evidence of trocar injuries. 5 mm trochars were placed in the epigastric mid abdomen right upper quadrant. The liver was noted to be significantly fatty. The gallbladder was markedly edematous. The gallbladder was distracted all tissues were edematous and fragile. Tedious blunt dissection was instituted at the infundibulum until clearly the cystic duct lymph node the cystic duct the cystic artery was identified. A Hem-o-delisa clip was placed on the cystic duct it was milked back to 14-gauge Angiocath and catheter was inserted and fluoroscopically placed cholangiogram catheter. It is of note that the patient received a milligram of glucagon IV at the initiation of the operation. Fluoroscopically controlled cholangiograms were obtained this demonstrated flow into the common bile duct flow back into the intrahepatic ducts I did not see any intraluminal filling defect. The cholangiogram catheter was removed. 2 Hem-o-delisa clips were placed on the cystic duct stump prior to transecting it. The gallbladder was tediously dissected free from the liver bed. All tissues were quite fragile and bled readily. Electrocautery was used for hemostasis the's there was some bile leakage but this was rapidly collected. No stone leakage. The gallbladder was removed and placed in retrieval bag. The right upper quadrant was irrigated and aspirated free of excess fluid. Fibular was placed in the liver bed. Complete hemostasis was intact. The gallbladder was exited the umbilicus. The remaining trochars were were allowed to deflate through an antiviral valve. The fascia at the umbilicus approximated with 0 Vicryl [id number] sutures. Skin edges approximate interrupted 4 Monocryl subdermal stitches. Steri-Strips Telfa OpSite dressings applied. Sponge and instrument and needle counts were reported to the surgeon to be correct. Specimen gallbladder. Drains none. Blood loss 20 cc. The patient was taken to the recovery room in satisfied condition without apparent complication Romeo Roy M.D., F.A.C.S. Surgeon: Romeo Roy Type of Anesthesia: General
--- NOTE | 2022-09-06 15:50 | DCINST_ITS ---
Discharge Instructions Procedure General Surgery Diet Discharge Diet: Light diet - advance as tolerated (if you have questions about your diet instructions, please talk to you doctor.) Activity Discharge Activity: May Not Drive (for 3-5 days or while taking narcotic pain medicine.) May shower in (days): 1 Lifting Restrictions: 10 pounds Dressing / Incision Call your doctor if your incision/area has: Continuous Slow Oozing, Sudden Increased Bleeding, Increased Pain/ Swelling, Increased Redness and Foul Smelling Discharge Call your doctor if you observe: Fever of 101 or Higher Suture Line Care: Avoid Pulling/Pushing and Avoid Pinching/Bending Additional Dressing/Incision Instructions:: Change or remove dressing in 3 days. Leave steri-strips in place for 1 week. Follow Up Care Please Follow Up With: Romeo Roy MD When: Call [phone] to make an appointment to be seen in about 10 days. Test Results: Test results from this visit will be discussed in further detail at your follow- up appointment, if applicable. Discharge Plan Admission Admit Date/Time: 09/05/22 11:35 Primary Reason for Your Visit: Acute cholecystitis cholelithiasis Attending Provider: Jefry Harding Primary Care Provider: Uvaldo De León Consulting Providers: Hannah Espinal ; Ashvin Guzman Discharge Orders/Prescriptions Prescriptions: New hydrocodone-acetaminophen 5-325 mg tablet 1 tab PO Q6H PRN (Reason: pain) 2 Days Qty: 6 0RF Continued labetalol 200 MG tablet 200 mg PO BID pravastatin 40 MG tablet 40 mg PO QHS fluoxetine 20 MG capsule 20 mg PO DAILY cholecalciferol (vitamin D3) [Vitamin D3] 25 mcg (1,000 unit) Tablet 50 mcg PO DAILY d-mannose 500 mg Capsule 1,000 mg PO DAILY Ravinder-X 2 cap PO/SL DAILY Referrals / Follow Up: Uvaldo De León DO [Primary Care Provider] - Disposition Disposition (needs filled in before D/C Order can be placed): Home, Self Care
[2022-09-07] MEDS: 0.9% Normal Saline 1,000 ML 125 ML IV (01:58)
[2022-09-07 02:00] VITALS: O2SAT 93
[2022-09-07 02:22] VITALS: BP 115/75; PULSE 98; RESP 18; TEMP 36.6; O2SAT 98
[2022-09-07 05:40] LABS: Absolute Lymphocyte Count 1.12 X10^3/uL (0.83-4.51); Absolute Neutrophil Count 8.2 X10^3/uL (2.0-7.7); Basophil# 0.01 X10^3/uL; Basophil% 0.1 % (0-1); Hemoglobin 12.2 g/dL (12.0-15.0); Lymphocyte # 1.12 X10^3/ul (0.83-4.51); Lymphocyte % 11.5 % (19-41); Mean Corp Hgb Conc 32.1 g/dL (32-36); Mean Corpuscular Hgb 29.7 pg (27.0-32.0); Mean Corpuscular Volume 92.5 fL (81-99); Mean Platelet Vol. 10.7 fl (6.2-12.0); Monocyte# 0.36 X10^3/uL; Monocyte% 3.7 % (0-10); NRBC Flagged by Analyzer 0 % (0-5); Neutrophil # 8.18 X10^3/uL (2.7-7.7); Neutrophil % 84.2 % (47-70); Platelet Count 245 K/mm3 (150-450); RBC Distribution Width CV 14.1 % (11.6-14.6); RBC Distribution Width SD 47.5 fl (35.1-43.9); Red Blood Count 4.11 M/mm3 (4.2-5.4); White Blood Count 9.7 K/mm3 (4.4-11.0)
--- NOTE | 2022-09-07 05:48 | PN.SURG_ITS ---
Subjective Subjective Patient is complaining of some mild abdominal soreness. Otherwise she is feeling well. Objective Data Objective Data Vital Signs: Vital Signs Temp Pulse Resp BP Pulse Ox O2 Del Method O2 Flow Rate 97.8 F 98 18 115/75 98 Nasal Cannula 2 09/07/22 02:22 09/07/22 02:22 09/07/22 02:22 09/07/22 02:22 09/07/22 02:22 09/07/22 02:22 09/07/22 02:22 Oxygen Flow Rate (L/min) 2 Oxygen Delivery Method Nasal Cannula Weight: 220 lb 3.869 oz Body Mass Index (BMI) 41.5 Intake & Output: Intake and Output for Last 24 Hours 09/05/22 09/06/22 09/07/22 23:59 23:59 23:59 Intake Total 2827.25 / 2827.25 2940.59 / 2940.59 966.67 / 966.67 Output Total 2300 / 2300 Balance 2827.25 / 1527.25 640.59 / 640.59 966.67 / 966.67 Lab / Micro Data Result Diagrams: 09/07/22 04:19 09/05/22 06:40 Labs: Laboratory Results - last 24 hr 09/06/22 05:50: WBC 8.3, RBC 4.39, Hgb 13.0, Hct 40.5, MCV 92.3, MCH 29.6, MCHC 32.1, RDW Std Deviation 48.2 H, RDW Coeff of Shakir 14.3, Plt Count 250, MPV 10.0, Immature Gran % (Auto) 0.500, Neut % (Auto) 71.2 H, Lymph % (Auto) 20.5, [place] % (Auto) 6.6, Eos % (Auto) 0.7, Baso % (Auto) 0.5, Absolute Neuts (auto) 5.9, Absolute Lymphs (auto) 1.70, Nucleated RBC % 0 09/06/22 05:50: Total Bilirubin 2.30 H, Direct Bilirubin 0.54 H, AST 84 H, ALT 144 H, Alkaline Phosphatase 110, Total Protein 6.9, Albumin 3.2, Globulin 3.7, Lipase 222 09/07/22 04:19: WBC 9.7, RBC 4.11 L, Hgb 12.2, Hct 38.0, MCV 92.5, MCH 29.7, MCHC 32.1, RDW Std Deviation 47.5 H, RDW Coeff of Shakir 14.1, Plt Count 245, MPV 10.7, Immature Gran % (Auto) 0.500, Neut % (Auto) 84.2 H, Lymph % (Auto) 11.5 L, [place] % (Auto) 3.7, Eos % (Auto) 0.0, Baso % (Auto) 0.1, Absolute Neuts (auto) 8.2 H, Absolute Lymphs (auto) 1.12, Nucleated RBC % 0 Physical Exam Narrative Alert, absolutely no acute distress GI GI Narrative: Soft, large, bowel sounds present, dressings dry Assessment & Plan Assessment/Plan (1) Cholecystitis, acute with cholelithiasis: PLAN: Plan Patient who has had surgical treatment for acute cholecystitis cholelithiasis looks notably improved. Plan discharge today. The patient is encouraged to utilize ambulation and up out of bed posturing and incentive spirometry so she does not have to go home with nasal prong oxygen. Romeo Roy M.D., F.A.C.S.
--- NOTE | 2022-09-07 05:53 | DS.PCM_ITS ---
Providers Date of Admission: 09/05/22 Date of Discharge: 09/07/22 Primary Care Physician: Dr. Uvaldo De León DO Attending Physician: Dr. Romeo Roy Consultations 09/05/22 11:34 Consult: Gastroenterology Routine Consulting Provider: [facility] Reason for Consult: Choledocholithiasis EMERGENT Consult: Yes Notified: Yes Date Notified: 09/05/22 Time Notified: 11:36 Method of Notification: Verbal 09/05/22 16:23 Consult: Hospitalist Routine Consulting Provider: Ashvin Guzman Reason for Consult: uncontrolled HTN- periop management EMERGENT Consult: No Notified: Yes Date Notified: 09/05/22 Time Notified: 16:23 Method of Notification: Verbal Reason For Visit: Acute cholecystitis cholelithiasis Diagnosis Discharge Diagnosis (1) Cholecystitis, acute with cholelithiasis: Status: Acute Code(s): K80.00 - Calculus of gallbladder with acute cholecystitis without obstruction Plan Patient who has had surgical treatment for acute cholecystitis cholelithiasis looks notably improved. Plan discharge today. The patient is encouraged to utilize ambulation and up out of bed posturing and incentive spirometry so she does not have to go home with nasal prong oxygen. Romeo Roy M.D., F.A.C.S. Medications at Discharge Home Medications fluoxetine 20 mg capsule 20 mg PO DAILY DEPRESSION 02/02/19 labetalol 200 mg tablet 200 mg PO BID HEART 02/02/19 pravastatin 40 mg tablet 40 mg PO QHS CHOLESTEROL 02/02/19 Ravinder-X 2 cap PO/SL DAILY SUPPLEMENT 09/05/22 cholecalciferol (vitamin D3) 25 mcg (1,000 unit) tablet (Vitamin D3) 50 mcg PO DAILY SUPPLEMENT 09/05/22 d-mannose 500 mg capsule 1,000 mg PO DAILY SUPPLEMENT 09/05/22 hydrocodone-acetaminophen 5-325mg 5mg-325mg 1 tab PO Q6H PRN pain 2 days #6 tabs 09/07/22 Hospital Course Summary of Care Provided Hospital Course: The patient was admitted by Dr. Jefry Harding on September 05, 2022. In his absence I took over her care on September 06, 2022 and immediately proceeded to surgery with a laparoscopic cholecystectomy with cholangiograms. Findings consistent with acute cholecystitis cholelithiasis identified. There was no evidence of choledocholithiasis. The patient did well and discharged the subsequent day. Weight / BMI Weight Weight: 220 lb 3.869 oz Body Mass Index (BMI) 41.5 ABG / Lab / Microbiology Data Result Diagrams: 09/07/22 04:19 09/05/22 06:40 Laboratory: Laboratory Results - last 24 hr 09/06/22 05:50: WBC 8.3, RBC 4.39, Hgb 13.0, Hct 40.5, MCV 92.3, MCH 29.6, MCHC 32.1, RDW Std Deviation 48.2 H, RDW Coeff of Shakir 14.3, Plt Count 250, MPV 10.0, Immature Gran % (Auto) 0.500, Neut % (Auto) 71.2 H, Lymph % (Auto) 20.5, [place] % (Auto) 6.6, Eos % (Auto) 0.7, Baso % (Auto) 0.5, Absolute Neuts (auto) 5.9, Ab solute Lymphs (auto) 1.70, Nucleated RBC % 0 09/06/22 05:50: Total Bilirubin 2.30 H, Direct Bilirubin 0.54 H, AST 84 H, ALT 144 H, Alkaline Phosphatase 110, Total Protein 6.9, Albumin 3.2, Globulin 3.7, Lipase 222 09/07/22 04:19: WBC 9.7, RBC 4.11 L, Hgb 12.2, Hct 38.0, MCV 92.5, MCH 29.7, MCHC 32.1, RDW Std Deviation 47.5 H, RDW Coeff of Shakir 14.1, Plt Count 245, MPV 10.7, Immature Gran % (Auto) 0.500, Neut % (Auto) 84.2 H, Lymph % (Auto) 11.5 L, [place] % (Auto) 3.7, Eos % (Auto) 0.0, Baso % (Auto) 0.1, Absolute Neuts (auto) 8.2 H, Absolute Lymphs (auto) 1.12, Nucleated RBC % 0 D/C Instructions Discharge Diet: Light diet - advance as tolerated (if you have questions about your diet instructions, please talk to you doctor.) May shower in (days): 1 Call your doctor if your incision/area has: Continuous Slow Oozing, Sudden Incre ased Bleeding, Increased Pain/ Swelling, Increased Redness and Foul Smelling Discharge Call your doctor if you observe: Fever of 101 or Higher Suture Line Care: Avoid Pulling/Pushing and Avoid Pinching/Bending Additional Dressing/Incision Instructions: Change or remove dressing in 3 days. Leave steri-strips in place for 1 week. Please Follow Up With: Romeo Roy MD When: Call [phone] to make an appointment to be seen in about 10 days. Meaningful Use Info Meaningful Use Diagnoses (Choose all that apply): None applicable Discharge Plan Admission Admit Date/Time: 09/05/22 11:35 Primary Reason for Your Visit: Acute cholecystitis cholelithiasis Attending Provider: Jefry Harding Primary Care Provider: Uvaldo De León Consulting Providers: Hannah Espinal ; Ashvin Guzman Discharge Orders/Prescriptions Prescriptions: New hydrocodone-acetaminophen 5-325 mg tablet 1 tab PO Q6H PRN (Reason: pain) 2 Days Qty: 6 0RF Continued labetalol 200 MG tablet 200 mg PO BID pravastatin 40 MG tablet 40 mg PO QHS fluoxetine 20 MG capsule 20 mg PO DAILY cholecalciferol (vitamin D3) [Vitamin D3] 25 mcg (1,000 unit) Tablet 50 mcg PO DAILY d-mannose 500 mg Capsule 1,000 mg PO DAILY Ravinder-X 2 cap PO/SL DAILY Referrals / Follow Up: Uvaldo De León DO [Primary Care Provider] - Disposition Disposition (needs filled in before D/C Order can be placed): Home, Self Care
[2022-09-07 06:07] LABS: ALB/GLOB Ratio 0.8 RATIO (0.9-2.4); AST(SGOT) 203 U/L (15-37); Alanine Aminotransfer ALT/SGPT 234 U/L (13-56); Albumin, Serum 3.1 g/dL (3.2-5.0); Alkaline Phosphatase 151 U/L (45-117); Anion Gap 6 (5-15); BUN 7 mg/dL (7-18); BUN/Creat Ratio 12.1 RATIO (10-20); Calcium,Total 8.6 mg/dL (8.5-10.1); Chloride 107 mmol/L (98-107); Creatinine, Serum 0.58 mg/dL (0.55-1.02); EST Glomerular Filtration Rate 115 mL/min (>60); Est Glom Filt Rate - Afr Amer 139 mL/min (>60); Estimated Creatinine Clearance 83.67 ml/min; Globulin 3.7 g/dL (2.2-4.2); Glucose 102 mg/dL (74-106); Potassium 3.8 mmol/L (3.5-5.1); Protein, Total 6.8 g/dL (6.4-8.2); Sodium Level 140 mmol/L (136-145)
[2022-09-07] MEDS: Acetaminophen 500 MG Tablet PO (06:11)
[2022-09-07 06:18] VITALS: BP 158/87; PULSE 71; RESP 16; TEMP 37; O2SAT 97
--- NOTE | 2022-09-07 09:06 | PN.HOSP_ITS ---
Subjective Subjective Follow-up on medical management/Hypertension/acute cholecystitis: Patient was seen and examined. She denied any shortness of breath. Her abdominal pain is controlled. Denied any nausea or vomiting. Objective Data Objective Data Vital Signs: Vital Signs Temp Pulse Resp BP Pulse Ox O2 Del Method O2 Flow Rate 98.6 F 71 16 158/87 H 97 Room Air 2 09/07/22 06:18 09/07/22 06:18 09/07/22 06:18 09/07/22 06:18 09/07/22 06:18 09/07/22 06:18 09/07/22 02:22 Oxygen Flow Rate (L/min) 2 Oxygen Delivery Method Room Air Weight: 99.9 kg Body Mass Index (BMI) 41.5 Intake & Output: Intake and Output for Last 24 Hours 09/05/22 09/06/22 09/07/22 23:59 23:59 23:59 Intake Total 2827.25 / 2827.25 2940.59 / 2940.59 966.67 / 966.67 Output Total 2300 / 2300 Balance 2827.25 / 1527.25 640.59 / 640.59 966.67 / 966.67 Lab / Micro Data Result Diagrams: 09/07/22 04:19 09/07/22 04:19 Labs: Laboratory Results - last 24 hr 09/07/22 04:19: WBC 9.7, RBC 4.11 L, Hgb 12.2, Hct 38.0, MCV 92.5, MCH 29.7, MCHC 32.1, RDW Std Deviation 47.5 H, RDW Coeff of Shakir 14.1, Plt Count 245, MPV 10.7, Immature Gran % (Auto) 0.500, Neut % (Auto) 84.2 H, Lymph % (Auto) 11.5 L, [place] % (Auto) 3.7, Eos % (Auto) 0.0, Baso % (Auto) 0.1, Absolute Neuts (auto) 8.2 H, Absolute Lymphs (auto) 1.12, Nucleated RBC % 0 09/07/22 04:19: Sodium 140, Potassium 3.8, Chloride 107, Carbon Dioxide 27.0, Anion Gap 6, BUN 7, Creatinine 0.58, Estim Creat Clear Calc 83.67, Est GFR (MDRD) Af Amer 139, Est GFR (MDRD) Non-Af 115, BUN/Creatinine Ratio 12.1, Glucose 102, Calcium 8.6, Total Bilirubin 1.90 H, AST 203 H, ALT 234 H, Alkaline Phosphatase 151 H, Total Protein 6.8, Albumin 3.1 L, Globulin 3.7, Albumin/Globulin Ratio 0.8 L Physical Exam Narrative Physical exam: General: Alert, Oriented x3, Cooperative, obese HEENT: Atraumatic Oral: Moist Mucosa Neck: Supple Lungs: Clear to auscultation Cardiovascular: HS I+II, regular, no murmurs Abdomen: Laparoscopic dressings over the anterior abdomen, clean, intact, bowel Sounds Present, Soft, Non Tender Extremities: No edema Skin: No rashes, No breakdown Neurological: Grossly intact Psych/Mental Status: Appropriate Assessment & Plan Assessment/Plan (1) HTN (hypertension): (2) Choledocholithiasis with acute cholecystitis: PLAN: Plan 1. Hypertensive urgency, resolved Continue on labetalol 2. POD #1, status post laparoscopic cholecystectomy for cholecystitis No choledocholithiasis seen on intraoperative cholangiograms LFT's are improved Follow-up on general surgery recommendations 3. Depression, continue on fluoxetine after surgery 4. Hyperlipidemia, continue statin 5. DVT prophylaxis?Per primary team; early ambulation recommended Okay to discharge from medical standpoint Charges/Coding Visit Charges Inpatient E&M: 38962 Subs Hosp L2
[2022-09-07] MEDS: FLUoxetine 20 MG Capsule PO (09:12)
[2022-09-07] MEDS: Labetalol 200 MG Tablet PO (09:12)
[2022-09-07 09:49] VITALS: BP 128/73; PULSE 71; RESP 18; TEMP 36.9; O2SAT 95
--- NOTE | 2022-09-07 10:40 | CASEMGMT ---
RN SHERRY Face to Face with patient for initial transition planning/care coordination assessment. RN CM introduced self and role at [facility]. Patient lying in bed, alert and oriented. Patient willing to participate in assessment and is able to answer all questions appropriately. Care providers, pharmacy, and demographics verified. Patient wishes to discharge home, denies need for home health at this time. Patient states she has no further needs or concerns at this time. CM to follow for discharge planning needs that may arise. PCP: Sarthak Specialists: Dena urologist [facility]acy[facility] Insurance: [employer] Prescription Benefit: none Living Will/HPOA: none LNOK: Living Arrangements: Patient lives with in a single story home with 1 step to enter the home. Patient states she is independent at home. Transportation: Driving service DME/HHC: Patient denies DME in the home. Patient has had Promotion Therapy Disposition Plan: Patient to discharge home with family support and follow-up plans in place. Winifred PENA, RN, CM
--- NOTE | 2022-09-24 10:17 | CASEMGMT ---
INCIDENTAL FINDING FOLLOW-UP: TC to pt. No answer. Complex Freight Rate Analyst left her name, phone number, and requested a return call.
== END 2022-09-07 12:20 | disposition home or self-care (01) | DRG 418 ==
LOC: ED 07:23 → SDC 11:22 → ED 12:43 → MS3 12:45
PROVIDERS: Internal Medicine; Surgery; Admitting Provider Surgery; Emergency Provider Student in an Organized Health Care Education/Training Program; PCP Family Medicine; Visit Provider Surgery
PROC: 0FT44ZZ Resection of Gallbladder, Percutaneous Endoscopic Approach (ICD-10-PCS; CPT 47610; principal; 2022-09-06 13:45)
DX: K80.00 Calculus of gallbladder with acute cholecystitis without obstruction (principal); Z68.41 Body mass index [BMI] 40.0-44.9, adult; E66.9 Obesity, unspecified; K75.89 Other specified inflammatory liver diseases; E78.00 Pure hypercholesterolemia, unspecified; I10 Essential (primary) hypertension; I16.0 Hypertensive urgency; F32.A Depression, unspecified; Z79.899 Other long term (current) drug therapy
CPT/HCPCS: 36415; 74177; 74300; 76000; 76705; 80053; 80076; 81001; 81025; 83690; 85025; 88304; 93005; 99251; 99284; J7030; J7050; J7120; Q9967; A4216; G0463; J1610; J2405

== ENCOUNTER 2022-10-30 08:37 | Day surgery (SDC) | payer SELFPAY, OTHER ==
[2022-10-30] VITALS (9 sets, daily range): BP systolic 121–138; BP diastolic 70–91; PULSE 74–87; RESP 16–18; TEMP 36.2–36.6; O2SAT 92–96; BMI 39.9
--- NOTE | 2022-10-30 09:10 | PCM.HP.BLA ---
History and Physical Date of Admission: 10/30/22 Intake Vital Signs ? 09/06/2211:54 10/11/2211:54 Height 5 ft 1 in 5 ft 1 in Weight: ? 218 lb 8 oz BMI ? 41.3 BP ? 142/86 H Intake Visit Reasons:?referral from Wai lópez Chief Counsel Required: No Is patient in pain?: No Allergies No Known Allergies Allergy (Verified 10/11/22 12:04) Medications fluoxetine 20 mg capsule 20 mg PO DAILY DEPRESSION 02/02/19 [History Confirmed 10/11/22] labetalol 200 mg tablet 200 mg PO BID HEART 02/02/19 [History Confirmed 10/11/22] pravastatin 40 mg tablet 40 mg PO QHS CHOLESTEROL 02/02/19 [History Confirmed 10/11/22] Ravinder-X 2 cap PO/SL DAILY SUPPLEMENT 09/05/22 [History Confirmed 10/11/22] cholecalciferol (vitamin D3) 25 mcg (1,000 unit) tablet (Vitamin D3) 50 mcg PO DAILY SUPPLEMENT 09/05/22 [History Confirmed 10/11/22] d-mannose 500 mg capsule 1,000 mg PO DAILY SUPPLEMENT 09/05/22 [History Confirmed 10/11/22] telmisartan 40 mg tablet (Micardis) 40 mg PO DAILY 10/11/22 [History Confirmed 10/11/22] Post menopausal: No Patient : No : No [employer] [facility] [facility] Medical History? High cholesterol HTN (hypertension) Hypothyroidism Kidney stones Rheumatic fever Surgical History? H/O shoulder surgery History of appendectomy History of cholecystectomy Family History? Brother Kidney stoneFather Hypertension Social History?(Updated 10/11/22 @ 12:05 by Lucía Soni) Smoking Status:? Never smoker alcohol intake:? never substance use type:? does not use additional social history:? - Max ? HPI referral from Wai lópez Details: VANDA MERCADO is a 52 year old who presents for discussion about heavy menses. 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 She has had very heavy menses and states never had a time that she has ever stopped bleeding. An ultrasound was performed showing a round polyp structure in the endometrium measuring 1.5 cm. She is interested in surgical and non-surgical options. She is here today with her and will be taking advantage of the [facility] liaison to help with costs of a potential procedure.? She has 10 uncomplicated vaginal deliveries and denies prolapse symptoms or bladder symptoms. She states that her mom had 14 children and she did in fact have to undergo a hysterectomy for prolapse. History ? ? ? 11 ? Elective abortions ? Hx Para ? ? ? 10 ? Spontaneous abortions ? Hx # Term Pregnancies ? Ectopic pregnancies ? Hx # Pregnancies ? Multiple births ? # of living children ? ROS Const ROS Unobtainable: All systems reviewed & are unremarkable except as noted in H Resp Resp: Reports system reviewed and no additional complaints, except as documented; Denies cough GI GI: Reports as per HPI Psych Psych: Reports system reviewed and no additional complaints, except as documented Exam Const General: cooperative, healthy appearing, comfortable and no acute distress Resp Effort & Inspection: normal respiratory effort Skin General: no rashes or lesions noted Psych Appearance: grossly normal Speech and Movement: speech and movement normal Coding Level of Care Code Off vis,new,level 4 Diagnoses Menorrhagia? N92.0 Abnormal uterine bleeding due to endometrial polyp? N93.9; N84.0 Assessment and Plan Assessment and Plan (1) Menorrhagia: ?Status:?Acute (2) Abnormal uterine bleeding due to endometrial polyp: ?Status:?Acute Plan after a long discussion the plan is to proceed with a hysteroscopy D&C (with use of the symphion) then placement of mirena iud and pap under anesthesia. After discussing the patient's diagnosis and treatment plan options, patient wishes to proceed with surgical management.? I have discussed with the patient the risks, benefits, and alternatives of the procedure which include but are not limited to risks of anesthesia, bleeding, infection, possible damage to bowel, bladder, or surrounding vasculature which could lead to additional surgery to evaluate any complications.? Patient agrees to procedure and wishes to proceed.? ACOG/uptodate references given for additional information regarding procedure.? 10/11/22 2440 <Electronically signed by Bárbara Tavares DO> UPDATE- I have seen the patient and performed any clinically relevant updates to the history and physical exam. Bárbara Tavares, DO
[2022-10-30 09:25] LABS: Absolute Neutrophil Count 4.3 X10^3/uL (2.0-7.7); Basophil# 0.03 X10^3/uL; Basophil% 0.5 % (0-1); Eosinophil# 0.06 X10^3/uL; Hematocrit 41.4 % (37-47); Lymphocyte % 17.9 % (19-41); Mean Corp Hgb Conc 33.8 g/dL (32-36); Mean Corpuscular Hgb 30.6 pg (27.0-32.0); Mean Corpuscular Volume 90.6 fL (81-99); Mean Platelet Vol. 9.8 fl (6.2-12.0); Monocyte# 0.68 X10^3/uL; NRBC Flagged by Analyzer 0 % (0-5); Neutrophil # 4.27 X10^3/uL (2.7-7.7); Neutrophil % 69.3 % (47-70); Platelet Count 249 K/mm3 (150-450); RBC Distribution Width CV 13.4 % (11.6-14.6); RBC Distribution Width SD 45.1 fl (35.1-43.9); Red Blood Count 4.57 M/mm3 (4.2-5.4); White Blood Count 6.2 K/mm3 (4.4-11.0)
[2022-10-30] MEDS: Lactated Ringers 1,000 ML 15 ML IV (09:27)
[2022-10-30 09:31] LABS: Internal QC Validated? YES +Cl - CLEAR BKGD; Pregnancy, Urine Negative Negative
--- NOTE | 2022-10-30 09:32 | DCINST_ITS ---
Discharge Instructions Diet Discharge Diet: No restrictions Activity Discharge Activity: Return to Normal Activity, May Shower and May Take a Tub Bath (after 1 week) May resume sexual activity in: 1-2 weeks Weight Bearing Status: Weight bearing as tolerated Lifting Restrictions: none Dressing / Incision Call your doctor if you observe: Fever of 101 or Higher, Using more than 1 pad per hour, Shortness of breath and Uncontrolled pain Follow Up Care Please Follow Up With: Bárbara Tavares DO When: Call [phone] to schedule appointment. Test Results: Test results from this visit will be discussed in further detail at your follow- up appointment, if applicable. Discharge Plan Admission Primary Reason for Your Visit: hysteroscopy Dilation and curettage Attending Provider: Bárbara Tavares Primary Care Provider: Uvaldo De León Discharge Orders/Prescriptions Prescriptions: New naproxen 500 mg tablet 500 mg PO BID PRN (Reason: pain) Qty: 20 0RF Continued telmisartan [Micardis] 40 mg tablet 40 mg PO DAILY labetalol 200 MG tablet 200 mg PO DAILY pravastatin 40 MG tablet 40 mg PO QHS fluoxetine 20 MG capsule 20 mg PO DAILY cholecalciferol (vitamin D3) [Vitamin D3] 25 mcg (1,000 unit) Tablet 50 mcg PO DAILY d-mannose 500 mg Capsule 1,000 mg PO DAILY Ravinder-X 2 cap PO/SL DAILY Referrals / Follow Up: Uvaldo De León DO [Primary Care Provider] - Disposition Disposition (needs filled in before D/C Order can be placed): Home, Self Care
--- NOTE | 2022-10-30 10:00 | EMB_PTH ---
PATIENT: VANDA MERCADO LOC: [facility] U#:[id number] AGE/SX: 52/F ROOM: RE10/30/[address]: Dr. Bárbara Tavares DO : 1970 BED: DIS: 10/30/2022 SPEC #: [id number] RECD: 10/30/22 13:03 STATUS: LOUISE RESam #: [id number] MARKO: 10/30/22 10:[address]: Bárbara Tavares DEPT: SURGICAL PATHOLOGY RECD BY: Mary De La Garza ENTERED: 10/30/22 13:39 SP TYPE: ENDOM BX/C OTHR DR: Dr. Uvaldo De León DO Tissues: A - Endometrium, NOS B - Endometrium, NOS Procedures: Surgery Specimen Level IV HEADER OPERATION: Hysteroscopy, D & C Symphion, polypectomy, IUD insertion PRE-OP DIAGNOSIS: Menorrhagia, abnormal uterine bleeding due to endometrial polyps TISSUE SUBMITTED: A ? Endometrial curettings, B - Endometrial curettings, polyp MICROSCOPIC DIAGNOSIS A. Endometrial curettings: Secretory endometrium. B. Endometrial curettings, polyp: Secretory endometrium. Fragments of myometrium. See comment. LEILANI:chel 10/31/2022 COMMENT B. The fragments of myometrium may represent submucosal leiomyoma fragments. Clinical correlation and appropriate follow up are necessary. MICROSCOPIC DESCRIPTION Slides are reviewed. GROSS DESCRIPTION A - Received in fixative is one container labeled with the patient's name and designated endometrial curettings. The specimen consists of multiple irregular fragments of light chou soft tissue that in aggregate measure 1 x 0.6 x 0.1 cm. The specimen is totally submitted in one cassette. B - Received in fixative is one container labeled with the patient's name and designated endometrial curettings and polyp. The specimen consists of multiple irregular fragments of pink-chou soft tissue that in aggregate measure 5 x 5 x 0.2 cm. The specimen is totally submitted in three cassettes. / AM:chel 10/30/2022 TC:5 CPT: 86623 x2
[2022-10-30] MEDS: Lidocaine 1% (20 ml mdv) 20 ML Vial (10:28)
--- NOTE | 2022-10-30 10:32 | PCM.OP.BLANK ---
Operative Report Date of Procedure: 10/30/22 preoperative diagnosis: postmenopausal bleeding, uterine mass postoperative diagnosis: postmenopausal bleeding, uterine mass surgeon: Dr. Bárbara Tavares, procedure: dilation and curettage using the symphion device to resect uterine mass, pap smear, and placement of Mirena intrauterine device. EBL: 5 cc urine output: 25cc fluid deficit: 450cc Patient was prepped and draped in a normal sterile fashion under MAC anesthesia. A weighted speculum was placed in the vagina and before the anterior lip of the cervix was grasped with a single-tooth tenaculum, a pap was collected. A paracervical block was placed with 1% lidocaine. Cervix was progressively dilated to allow passage of a 5 mm hysteroscope. The lining was fully visualized and noted to have a moderate sized uterine mass that appeared polypoid but could not exculde fibroid. . Uterine sounded to 8 cm. Curettage was performed using the symphion device to completely remove the mass, followed by a sharp curettage of the lining of the uterus. next the IUD was placed to the fundus of the uterus and the strings were trimmed to approximately 3 cm from the cervix. All specimens were sent to pathology. All instruments were removed from the vagina and excellent hemostasis was noted. Patient was awoken and taken to recovery in stable condition. Multi Select Codes Urinary/Genital Urinary/Genital CPT Codes: 32855 [place]UD [place] [address] Hysteroscopy,EMC, Polypectomy
[2022-11-02 20:19] LABS: HPV APTIMA, High Risk Negative (Negative)
== END 2022-10-30 12:17 | disposition home or self-care (01) ==
LOC: SDC 08:39 → AC 08:40
PROVIDERS: Anesthesiology; PCP Family Medicine; Referring Provider Obstetrics & Gynecology; Visit Provider Obstetrics & Gynecology
PROC: 0UB98ZZ Excision of Uterus, Via Natural or Artificial Opening Endoscopic (ICD-10-PCS; CPT 58558; principal; 2022-10-30 09:45)
DX: N84.0 Polyp of corpus uteri (principal); N95.0 Postmenopausal bleeding; N85.8 Other specified noninflammatory disorders of uterus; I10 Essential (primary) hypertension; E03.9 Hypothyroidism, unspecified; Z79.899 Other long term (current) drug therapy
CPT/HCPCS: 58558; 58300; 00952; 81025; 85025; 86850; 86900; 86901; 87624; 88175; 88305; J7120; G0145; J2405

== ENCOUNTER → 2022-11-14 | Outpatient (CLI) | payer OTHER, SELFPAY ==
[2022-11-21 20:50] LABS: HPV APTIMA, High Risk Negative (Negative)
== END | disposition home or self-care (01) ==
LOC: LABSPEC 15:11
PROVIDERS: PCP Family Medicine; Referring Provider Obstetrics & Gynecology; Visit Provider Obstetrics & Gynecology
DX: Z12.4 Encounter for screening for malignant neoplasm of cervix (principal)
CPT/HCPCS: 87624; 88175; G0145

== ENCOUNTER → 2023-11-15 | Outpatient (CLI) | payer SELFPAY ==
--- OUTSIDE RECORDS SUMMARY | 2023-11-15 12:41 | XMS RPT_ITS | CCD ---
Author Name Unknown Address [address] [place] [address] Organization [facility] Care Team Providers Care Supervisor Drying And Winding Name Role Phone FLAVIO FARMER Admitting Unavailable FLVAIO FARMER Attending Unavailable CHEY GUPTA Referring Unavailable FLAVIO FARMER Primary Care Unavailable CHEY GUPTA Consulting Unavailable PROVIDER, UNKNOWN Consulting Unavailable Problems Problem Classification Problem Date Documented Da te Episodic/Chronic Abdominal pain (2 sources) Pelvic and perineal pain; Translations: [Pelvic and perineal pain] Onset: 02-02-2019 Essential hypertension (1 source) Essential (primary) hypertension; Translations: [Essential (primary) hypertension] Onset: 02-02-2019 Chronic Urinary tract infections (1 source) Pyonephrosis; Translations: [Pyonephrosis] Onset: 02-02-2019 Episodic Results Test Name Value Interpretation Reference Range Facil ity Encounters Encounter Date Encounter Type Care Provider Facility Start: 02-02-2019 End: 02-02-2019 [facility] Procedure Procedure Detail Performing Clinician Start: 02-02-2019 Urinalysis FLAVIO GAINES RBERGER Payers Date Payer Category Payer Unknown [id number] Unknown [id number] Summary Purpose Family History No Family History Records FoundNo Family History Records Found Advance Directives No Advanced Directives Records FoundNo Advanced Directives Records Found Additional Source Comments INFORMATION SOURCE (unrecogn ized section and content) DATE CREATED AUTHOR AUTHOR'S AASHISH ATION 02/10/2019 [facility] FOR RECORDS PERTAINING TO PATIENTS WHO ARE OR HAVE BEEN ENROLLED IN A CHEMICAL DEPENDENCY/SUBSTANCEABUSE PROGRAM, SOME INFORMATION MAY BE OMITTED. This clinical summary was aggregated from multiple sources. Caution should be exercised in using it in the provision of clinical care. This summary normalizes information from multiple sources, and as a consequence, information in this document may materially change the coding, format and clinical context of patient data. In addition, data may be omitted in some cases. CLINICAL DECISIONS SHOULD BE BASED ON THE PRIMARY CLINICAL RECORDS. [facility]. provides no warranty or guarantee of the accuracy or completeness of information in this document.
[2023-11-15 14:14] LABS: Estradiol 32.4 pg/mL; Follicle Stimulating Hormone 10.8 mIU/mL; Luteinizing Hormone 3.3 mIU/mL
== END | disposition home or self-care (01) ==
PROVIDERS: PCP Family Medicine; Referring Provider Obstetrics & Gynecology; Visit Provider Obstetrics & Gynecology
DX: N93.9 Abnormal uterine and vaginal bleeding, unspecified (principal)
CPT/HCPCS: 36415; 82670; 83001; 83002; 84443

== ENCOUNTER → 2023-12-02 | Outpatient (CLI) | payer SELFPAY, OTHER ==
--- NOTE | 2023-12-02 12:26 | BI_ITS ---
MAMMOGRAPHY - BILATERAL SCREENING REASON FOR EXAM: Female, 53 years old. Routine annual screening examination. PERTINENT HISTORY: Non-contributory. TECHNIQUE: Digital bilateral breast fish (3D mammographic acquisition) in the CC and MLO projections. 2-D mediolateral oblique (MLO) and craniocaudad (CC) views of both breasts were obtained. CAD: Full Field Digital Mammography with Computer Added Detection was performed. COMPARISON: None. Baseline examination. FINDINGS: Breast Composition: There are scattered areas of fibroglandular density. There are no dominant masses or suspicious calcifications. Small benign-appearing bilateral axillary lymph nodes. No other significant abnormalities are identified. BI/SCRN MAMM (CAD)W/FISH BILAT IMPRESSION: Negative screening mammogram. Yearly followup mammogram recommended. (A) ASSESSMENT CATEGORY: BIRADS Category 2: Benign. A letter regarding these results will be sent to the patient by the facility within 30 days. Approximately 10% of breast cancers are not detected by mammography. A normal mammogram should not delay biopsy of a clinically suspicious abnormality. [id number] Electronically Signed: Mike Ponce MD at 14:17 EST ,
--- NOTE | 2023-12-02 12:26 | US_ITS ---
STUDY: ULTRASOUND OF THE FEMALE PELVIS - COMPLETE REASON FOR EXAM: Female, 53 years old. Perimenopausal bleeding LMP: Postmenopausal. TECHNIQUE: Transabdominal and Transvaginal TECHNICAL QUALITY: Adequate. COMPARISON: None. FINDINGS: The uterus is anteverted and is in a midline position. The uterus measures 9.9 cm x 6.1 cm x 5.3 cm. There is a Nabothian cyst of the cervix. The endometrium is thickened and measures 6.9 mm in thickness, and is hyperechoic. There is no demonstrated endometrial mass. Heterogeneous appearance of the myometrium suggestive of fibroid change. I.U.D. - The patient does not have an I.U.D. The right ovary is visualized. The right ovary measures 3.1 cm x 3.2 cm x 1.9 cm. There is no right ovarian cyst or ovarian mass. There is no visualized right adnexal mass or complex lesion. There is normal arterial and normal venous vascularity. The left ovary is visualized. The left ovary measures 3.4 cm x 3.2 cm x 1.8 cm. A dominant follicle is seen within it measuring 1.4 cm x 1.6 cm x 1.2 centimeters. There is no visualized left adnexal mass or complex lesion. There is normal arterial and normal venous vascularity. There is no fluid in the cul-de-sac. The pre void volume of the bladder was 224 ml. US/Pelvic w/ Transvaginal IMPRESSION: Mild degree of endometrial thickening. Fibroid change. Dominant follicle in the left ovary measuring 1.4 cm x 1.6 cm x 1.2 cm. Electronically Signed: Mike Ponce MD at 15:08 EST ,
--- OUTSIDE RECORDS SUMMARY | 2023-12-02 12:53 | XMS RPT_ITS | CCD ---
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 Operator Name Role Phone FLAVIO FARMER Admitting Unavailable FLAVIO FARMER Attending Unavailable CHEY GUPTA Referring Unavailable [...] 02-02-2019 [facility] department [facility] Procedures Date Procedure Procedure Detail Performing Clinician Start: 02-02-2019 Urinalysis FLAVIO GAINES RBERGER Payers Date Payer Category Payer Unknown [id number] Unknown [id number] Summary Purpose Family History No Family History Records FoundNo Family History Records Found Advance Directives No Advanced Directives Records FoundNo Advanced Directives Records Found Additional Source Comments INFORMATION SOURCE (unrecogn ized section and content) DATE CREATED AUTHOR AUTHOR'S AASHISH ATION 02/10/2019 [facility] FOR RECORDS PERTAINING TO PATIENTS WHO ARE [...] BE BASED ON THE PRIMARY CLINICAL RECORDS. [employer] [facility]. provides no warranty or guarantee of the accuracy or completeness of information in this document.
== END | disposition home or self-care (01) ==
LOC: US 12:25
PROVIDERS: PCP Family Medicine; Referring Provider Obstetrics & Gynecology; Visit Provider Obstetrics & Gynecology
DX: Z12.31 Encounter for screening mammogram for malignant neoplasm of breast (principal); N93.9 Abnormal uterine and vaginal bleeding, unspecified
CPT/HCPCS: 76830; 76856; 77063; 77067

== ENCOUNTER → 2024-12-17 | Outpatient (CLI) | payer SELFPAY ==
--- NOTE | 2024-12-17 12:57 | BI_ITS ---
PROCEDURE: SCRN MAMM (CAD)W/FISH BILAT REASON FOR EXAM: F, Age 54 y/o, no family history. TECHNIQUE: Bilateral screening digital breast tomosynthesis with 2D and 3D images. Computer aided detection. COMPARISON: Prior exam(s) dating back to December 02, 2023.. FINDINGS: There are scattered areas of fibroglandular density. Stable scattered bilateral calcifications. Stable benign-appearing bilateral axillary lymph nodes. No suspicious masses, areas of developing architectural distortion, or suspicious calcifications. BI/SCRN MAMM (CAD)W/FISH BILAT IMPRESSION: BI-RADS 2: BENIGN. RECOMMEND ANNUAL MAMMOGRAPHIC SCREENING. Follow-up code: Routine Follow-up The patient will be notified of the results by letter. Reading Location: [id number]
== END | disposition home or self-care (01) ==
PROVIDERS: PCP Family Medicine; Referring Provider Obstetrics & Gynecology; Visit Provider Obstetrics & Gynecology
DX: Z12.31 Encounter for screening mammogram for malignant neoplasm of breast (principal)
CPT/HCPCS: 77063; 77067